=== PATIENT | female | born 1975 | race Caucasian/White ===

== ENCOUNTER 2017-08-17 08:50 | Outpatient (CLI) | payer BC, SELFPAY ==
[2017-08-17 09:40] VITALS: BP 153/78; PULSE 84; RESP 18; TEMP 36.8
[2017-08-17 09:55] VITALS: BP 151/75; PULSE 80; RESP 18
[2017-08-17 10:50] VITALS: BP 137/71; PULSE 70; RESP 18
--- NOTE | 2017-08-17 11:20 | PC.NURSE ---
TOTAL VOLUME INCLUDES FERAHEME AND NS.
--- NOTE | 2017-08-17 11:27 | PC.NURSE ---
FERAHEME INFUSION STARTED AT 0940.
== END 2017-08-17 10:55 | disposition home or self-care (01) ==
LOC: INF 11:06
PROVIDERS: Family Provider Internal Medicine Adolescent Medicine; Visit Provider Internal Medicine Endocrinology, Diabetes & Metabolism
DX: D50.9 Iron deficiency anemia, unspecified (principal)
CPT/HCPCS: Q0138

== ENCOUNTER 2017-08-24 08:30 | Outpatient (CLI) | payer BC, SELFPAY ==
[2017-08-24 09:05] VITALS: BP 132/71; PULSE 65; RESP 20; TEMP 36.9; O2SAT 98
[2017-08-24 10:08] VITALS: BMI 37.8
== END 2017-08-24 09:40 | disposition home or self-care (01) ==
PROVIDERS: Family Provider Internal Medicine Adolescent Medicine; Visit Provider Internal Medicine Endocrinology, Diabetes & Metabolism
DX: D50.9 Iron deficiency anemia, unspecified (principal)
CPT/HCPCS: 96365; Q0138

== ENCOUNTER → 2017-08-28 08:58 | Outpatient (CLI) | payer BC, SELFPAY ==
[2017-08-28 09:21] LABS: Basophils % 0.1 % (0.1-2.0); Eosinophils # 0.1 K/mm3 (0.0-0.4); Eosinophils % 2.4 % (0.1-12.0); Hematocrit 34.2 % (37.0-47.0); Lymphocytes # 1.5 K/mm3 (0.7-4.5); Lymphocytes % 34.3 K/mm3 (10-50); Mean Corpuscular HGB Conc 32.2 g/dL (31.8-35.4); Mean Corpuscular Hemoglobin 23.8 pg (27.0-31.2); Mean Corpuscular Volume 73.9 fl (81-99); Mean Platelet Volume 7.2 fl (7.4-10.4); Monocytes # 0.2 K/mm3 (0.1-1.0); Monocytes % 4.5 % (1.7-9.3); Neutrophils # 2.6 K/mm3 (1.8-7.8); Neutrophils % 58.6 % (37.0-80.0); Platelet Count 200 K/mm3 (142-424); Red Blood Count 4.63 M/mm3 (4.20-5.40); Red Cell Distribution Width 19.9 % (11.5-17.5); White Blood Count 4.4 K/mm3 (4.8-10.8)
[2017-08-28 12:52] LABS: Alanine Aminotransferase 41 U/L (12-78); Albumin Level 3.8 gm/dL (3.4-5.0); Albumin/Globulin Ratio 1.1 (1.1-1.8); Alkaline Phosphatase 277 U/L (46-116); Aspartate Amino Transferase 46 U/L (15-37); Bilirubin,Total 0.8 mg/dL (0.2-1.0); Blood Urea Nitrogen 12 mg/dL (7-18); Calcium 9.2 mg/dL (8.5-10.1); Carbon Dioxide 26 mmol/L (21.0-32.0); Chloride 103 mmol/L (98-107); Creatinine,Serum 0.37 mg/dL (0.55-1.02); Estimated Glomerular Filt Rate 192 ml/min (>60); Free T4 (Free Thyroxine) 1.93 ng/dl (0.76-1.46); GFR (African American) 232 ML/MIN (>60); Globulin 3.6 gm/dl (1.3-3.2); Glucose 97 mg/dL (74-106); Sodium 138 mmol/L (136-145); T4 (Thyroxine) 16.9 ug/dl (4.7-13.3); Thyroid Stimulating Hormone 0.01 uIU/ml (0.358-3.740); Total Protein,Serum 7.4 gm/dL (6.4-8.2)
[2017-08-28 13:20] LABS: Ferritin 985 ng/mL (8-388)
[2017-08-29 08:29] LABS: Iron 105 ug/dL (27-159); UIBC 286 ug/dL (131-425)
[2017-08-30 08:50] LABS: Iron Saturation 27 % (15-55); Triiodothyronine (T3) Free 9.3 pg/mL (2.0-4.4)
== END ==
PROVIDERS: PCP Internal Medicine Adolescent Medicine; Visit Provider Internal Medicine Endocrinology, Diabetes & Metabolism
DX: E05.20 Thyrotoxicosis with toxic multinodular goiter without thyrotoxic crisis or storm (principal); E04.2 Nontoxic multinodular goiter; R94.6 Abnormal results of thyroid function studies
CPT/HCPCS: 36415; 80053; 82728; 83550; 84436; 84439; 84443; 84481; 85025

== ENCOUNTER → 2017-10-13 09:59 | Outpatient (CLI) | payer BC, SELFPAY ==
[2017-10-13 10:15] LABS: Basophils % 0.3 % (0.1-2.0); Eosinophils # 0.1 K/mm3 (0.0-0.4); Eosinophils % 2.2 % (0.1-12.0); Hematocrit 36.4 % (37.0-47.0); Hemoglobin 12.2 g/dL (12.2-16.2); Lymphocytes # 1.9 K/mm3 (0.7-4.5); Mean Corpuscular HGB Conc 33.6 g/dL (31.8-35.4); Mean Corpuscular Hemoglobin 26.8 pg (27.0-31.2); Mean Corpuscular Volume 79.8 fl (81-99); Mean Platelet Volume 7.6 fl (7.4-10.4); Monocytes # 0.3 K/mm3 (0.1-1.0); Monocytes % 5.5 % (1.7-9.3); Neutrophils # 2.7 K/mm3 (1.8-7.8); Neutrophils % 54.1 % (37.0-80.0); Platelet Count 183 K/mm3 (142-424); Red Blood Count 4.56 M/mm3 (4.20-5.40); Red Cell Distribution Width 17.4 % (11.5-17.5)
[2017-10-13 13:02] LABS: Alanine Aminotransferase 47 U/L (12-78); Albumin Level 3.6 gm/dL (3.4-5.0); Albumin/Globulin Ratio 1.1 (1.1-1.8); Alkaline Phosphatase 249 U/L (46-116); Anion Gap 12.1 mEq/L (5-15); Aspartate Amino Transferase 39 U/L (15-37); Bilirubin,Total 0.7 mg/dL (0.2-1.0); Blood Urea Nitrogen 10 mg/dL (7-18); Calcium 8.7 mg/dL (8.5-10.1); Carbon Dioxide 26 mmol/L (21.0-32.0); Chloride 103 mmol/L (98-107); Creatinine,Serum 0.46 mg/dL (0.55-1.02); Estimated Glomerular Filt Rate 149 ml/min (>60); Free T4 (Free Thyroxine) 1.27 ng/dl (0.76-1.46); GFR (African American) 180 ML/MIN (>60); Globulin 3.4 gm/dl (1.3-3.2); Glucose 108 mg/dL (74-106); Potassium 4.1 mmoL/L (3.5-5.1); Sodium 137 mmol/L (136-145); T4 (Thyroxine) 11.8 ug/dl (4.7-13.3); Thyroid Stimulating Hormone 0.01 uIU/ml (0.358-3.740)
[2017-10-14 23:20] LABS: Triiodothyronine (T3) Free 4.5 pg/mL (2.0-4.4)
== END ==
PROVIDERS: PCP Internal Medicine Adolescent Medicine; Visit Provider Internal Medicine Endocrinology, Diabetes & Metabolism
DX: E05.20 Thyrotoxicosis with toxic multinodular goiter without thyrotoxic crisis or storm (principal); R94.6 Abnormal results of thyroid function studies
CPT/HCPCS: 36415; 80053; 84436; 84439; 84443; 84481; 85025

== ENCOUNTER 2017-10-15 01:39 | Emergency (ER) | payer OTHER, SELFPAY ==
[2017-10-15 01:41] VITALS: BP 166/72; PULSE 70; RESP 18; TEMP 36.7; O2SAT 98; BMI 37.8
--- NOTE | 2017-10-15 02:00 | CT_ITS ---
CT head/brain wo con Ordering Physician: Andres Mckeon MD Patient Age: 41 years: Female . HISTORY pain injury. Hit top of head on bottom of acoustical door at work at 845 work related injury blunt trauma headache but no LOC. Headache.. TECHNIQUE: Routine axial CT head without contrast. Bone and brain windows reviewed No comparisons available None available . FINDINGS No hemorrhage. No mass. No subdural no extra-axial collection. The ventricles and basal cisterns appear satisfactory. . The posterior fossa is unremarkable. Skull intact. No skull fracture nor lesion evident. Note is made of near 15 mm domelike area at the floor right sphenoid sinus most likely incidental mucous retention cyst. No expansion to suggest mucocele. The remainder the paranasal sinuses clear. Orbits unremarkable. Mastoid air cells middle air and IACs survey images unremarkable. IMPRESSION: No acute intracranial findings. Brain within normal limits.
--- NOTE | 2017-10-15 02:14 | CT_ITS ---
CT cervical spine wo con Ordering Physician: Andres Mckeon MD Patient Age: 41 years: Female HISTORY: ITS.REASON: injury to head Hit top of head at work. Injury. Headache. Neck pain. TECHNIQUE: Helical CT scanning performed the cervical spine with sagittal and coronal reconstructions on CT workstation. COMPARISON : FINDINGS The cervical spine intact with no fracture nor subluxation evident. Degenerative vertebral bodies are intact. The disc spaces are well-maintained throughout. Facets and posterior elements intact.... There may be some scant early degenerative facet changes but these are very minor point. Normal alignment C-spine. Prevertebral soft tissues appear normal. C1-C2 relationships appear normal. . Thyroid appears enlarged bilaterally with left lobe extending down towards notch... Measures over 5 cm length right and left lobe. Was clinical correlation. Consider thyroid ultrasound Scattered small/[moderate-sized nodes throughout the neck] base of skull intact. The flat dome white Retention cyst floor right sphenoid sinus noted. The artifact from dental fillings. IMPRESSION: - Cervical spine intact with no fracture nor subluxation. No acute findings Thyromegaly incidentally noted. Warrants correlation
[2017-10-15 02:22] LABS: Urine Pregnancy, HCG Qual. Negative (Negative)
[2017-10-15 03:19] VITALS: BP 140/74; PULSE 71; O2SAT 98
--- NOTE | 2017-10-15 03:29 | HMH.EDTRAUMA ---
ED Disposition Clinical Impression: Concussion without loss of consciousness Qualifiers: Encounter type: initial encounter Qualified Code(s): S06.0X0A - Concussion without loss of consciousness, initial encounter Disposition: Home, Self-Care Condition on Discharge: Good Instructions: DI for Concussion Additional Instructions: advil/tyenol and ice and see pcp as needed- workman comp forms completed Referrals: Vitaly Dean MD [Primary Care Provider] - - Critical Care Critical Care Time: No Attestation: On 10/15/17, the high probability of a clinically significant, sudden or life threatening deterioration of the following system(s) required my full and direct attention, intervention and personal management. The time I documented below is in addition to time spent performing reported procedures but includes the following listed in this critical care notation. Medical Decision Making - Medical Records Medical records reviewed: Yes: I reviewed the patient's medical records. Vital Signs: 10/15/17 01:41 10/15/17 03:19 Temperature 98.1 F Temperature Source Oral Pulse Rate [Left Brachial] 70 71 Respiratory Rate 18 Blood Pressure [Left Arm] 166/72 140/74 Blood Pressure Mean [Left Arm] 103 96 Blood Pressure Source [Left Arm] Automatic Cuff Blood Pressure Position [Left Arm] Sitting Sitting 02 Sat by Pulse Oximetry 98 98 Oxygen Delivery Method Room Air Room Air - Lab Data Lab Results 10/15/17 02:14: Urine HCG, Qual Negative Orders (Tests/Meds): ORDERS Category Date Time Status CT cervical spine wo con Stat Cat Scan 10/15/17 02:[address] head/brain wo con Stat Cat Scan 10/15/17 02:00 Taken - CT Data CT Scan: Head, C-Spine Time Received: 03:[address] Reviewed: Yes: I have viewed the radiologist's interpretation Preliminary Findings: No Fracture Seen - Maldonado Inquiry Pt receiving controlled substance: No Trauma Alert The Trauma Alert Section documentation for [id number] Adelfo Taveras was populated with data that defaulted in from the president mortgage company in the Trauma Alert Triage Assessment on _Reg Service Date] to provide within this report, the status of the patient on arrival to the ED during the Trauma Alert. - Arrival Mode of Arrival: Ambulatory ED Triage Condition: Stable Information Source: Patient, Medical Record Limitations: No Limitations Description of Symptoms (Recalled from ER Triage Doc. by RN): Hit her head on corner of the back wall freezer door. Dizziness at first. No neuro deficits. Reports pain. Date of Symptom Onset: 10/14/17 - Accident Information Trauma Date: 10/14/17 Trauma Time: [address]: Work - Pre-Hospital Care Pre-Hospital Care Given: No - Pre-Hospital Care History Oxygen in Use: No - Height/Weight/BMI Height: 5 ft 4 in Weight: 220 lb Weight Measurement Method: Stated by Patient Body Mass Index: 37.8 - Glascow Coma Scale Coma scale eye opening: Spontaneous Coma scale motor response: Obeys commands Coma scale verbal response: Oriented Coma scale total: 15 - Trauma Score Respiratory Effort- Trauma Score: Normal Systolic Blood Pressure - Trauma Score: 166 Capillary Refill: < 3 Seconds Trauma Score: 10 - Immunization Status Hx Immunizations Up to Date: Yes Hx Tetanus Toxoid Vaccination: Yes - C-Spine/Immobilization C-Spine Immobilization Present: No - Motor Vehicle Collision Was patient involved in Motor Vehicle Collision: No Trauma HPI - General Chief Complaint: Head Injury Stated Complaint: Hit head at work on refrigerator door Time Seen by Provider: 10/15/17 03:32 Mode of Arrival: Ambulatory Source of Information: Patient, Medical Record Limitations: No Limitations Description of Symptoms (Recalled from ER Triage Doc. by RN): Hit her head on corner of the back wall freezer door. Dizziness at first. No neuro deficits. Reports pain. - History of Present Illness HPI narrative: hit head on refri
--- NOTE | 2017-10-15 03:33 | ED_ITS ---
ED Disposition Clinical Impression: Concussion without loss of consciousness Qualifiers: Encounter type: initial encounter Qualified Code(s): S06.0X0A - Concussion without loss of consciousness, initial encounter Disposition: Home, Self-Care Condition on Discharge: Good Instructions: DI for Concussion Additional Instructions: advil/tyenol and ice and see pcp as needed- workman comp forms completed Referrals: Vitaly Dean MD [Primary Care Provider] - - Critical Care Critical Care Time: No Attestation: On 10/15/17, the high probability of a clinically significant, sudden or life threatening deterioration of the following system(s) required my full and direct attention, intervention and personal management. The time I documented below is in addition to time spent performing reported procedures but includes the following listed in this critical care notation. Medical Decision Making - Medical Records Medical records reviewed: Yes: I reviewed the patient's medical records. Vital Signs: 10/15/17 01:41 10/15/17 03:19 Temperature 98.1 F Temperature Source Oral Pulse Rate [Left Brachial] 70 71 Respiratory Rate 18 Blood Pressure [Left Arm] 166/72 140/74 Blood Pressure Mean [Left Arm] 103 96 Blood Pressure Source [Left Arm] Automatic Cuff Blood Pressure Position [Left Arm] Sitting Sitting 02 Sat by Pulse Oximetry 98 98 Oxygen Delivery Method Room Air Room Air - Lab Data Lab Results 10/15/17 02:14: Urine HCG, Qual Negative Orders (Tests/Meds): ORDERS Category Date Time Status CT cervical spine wo con Stat Cat Scan 10/15/17 02:[address] head/brain wo con Stat Cat Scan 10/15/17 02:00 Taken - CT Data CT Scan: Head, C-Spine Time Received: 03:[address] Reviewed: Yes: I have viewed the radiologist's interpretation Preliminary Findings: No Fracture Seen - Maldonado Inquiry Pt receiving controlled substance: No Trauma Alert The Trauma Alert Section documentation for [id number] Adelfo Taveras was populated with data that defaulted in from the assistant professor surgical technology in the Trauma Alert Triage Assessment on _Reg Service Date] to provide within this report, the status of the patient on arrival to the ED during the Trauma Alert. - Arrival Mode of Arrival: Ambulatory ED Triage Condition: Stable Information Source: Patient, Medical Record Limitations: No Limitations Description of Symptoms (Recalled from ER Triage Doc. by RN): Hit her head on corner of the back wall freezer door. Dizziness at first. No neuro deficits. Reports pain. Date of Symptom Onset: 10/14/17 - Accident Information Trauma Date: 10/14/17 Trauma Time: [address]: Work - Pre-Hospital Care Pre-Hospital Care Given: No - Pre-Hospital Care History Oxygen in Use: No - Height/Weight/BMI Height: 5 ft 4 in Weight: 220 lb Weight Measurement Method: Stated by Patient Body Mass Index: 37.8 - Glascow Coma Scale Coma scale eye opening: Spontaneous Coma scale motor response: Obeys commands Coma scale verbal response: Oriented Coma scale total: 15 - Trauma Score Respiratory Effort- Trauma Score: Normal Systolic Blood Pressure - Trauma Score: 166 Capillary Refill: < 3 Seconds Trauma Score: 10 - Immunization Status Hx Immunizations Up to Date: Yes Hx Tetanus Toxoid Vaccination: Yes - C-Spine/
[2017-10-15 03:37] VITALS: BMI 37.8
[2017-10-15 03:41] VITALS: BP 131/74; PULSE 78; RESP 18; TEMP 36.7; O2SAT 97
== END 2017-10-15 03:43 | disposition home or self-care (01) ==
PROVIDERS: Emergency Provider Emergency Medicine; Family Provider Internal Medicine Adolescent Medicine; PCP Internal Medicine Adolescent Medicine
DX: S06.0X0A Concussion without loss of consciousness, initial encounter (principal); W22.8XXA Striking against or struck by other objects, initial encounter; Y92.69 Other specified industrial and construction area as the place of occurrence of the external cause; Y99.0 Civilian activity done for income or pay
CPT/HCPCS: 70450; 72125; 81025; 99282

== ENCOUNTER → 2017-11-20 11:11 | Outpatient (POV) | payer BC, SELFPAY | PROVIDERS: Visit Provider Otolaryngology | DX: Z00.00 Encounter for general adult medical examination without abnormal findings (principal) ==

== ENCOUNTER → 2018-01-18 09:08 | Outpatient (CLI) | payer BC, SELFPAY ==
[2018-01-18 10:01] LABS: Calcium 6.8 mg/dL (8.5-10.1)
== END ==
PROVIDERS: Visit Provider Otolaryngology
DX: R01.1 Cardiac murmur, unspecified (principal); R00.1 Bradycardia, unspecified; I10 Essential (primary) hypertension; E05.90 Thyrotoxicosis, unspecified without thyrotoxic crisis or storm; R53.83 Other fatigue
CPT/HCPCS: 36415; 82310

== ENCOUNTER → 2018-02-25 17:51 | Outpatient (CLI) | payer BC, SELFPAY ==
[2018-02-25 21:34] LABS: Alanine Aminotransferase 40 U/L (12-78); Albumin Level 3.9 gm/dL (3.4-5.0); Albumin/Globulin Ratio 1.1 (1.1-1.8); Alkaline Phosphatase 202 U/L (46-116); Anion Gap 18.7 mEq/L (5-15); Aspartate Amino Transferase 43 U/L (15-37); Bilirubin,Total 0.5 mg/dL (0.2-1.0); Blood Urea Nitrogen 15 mg/dL (7-18); Calcium 8.2 mg/dL (8.5-10.1); Carbon Dioxide 22 mmol/L (21.0-32.0); Chloride 104 mmol/L (98-107); Creatinine,Serum 0.66 mg/dL (0.55-1.02); Estimated Glomerular Filt Rate 98 ml/min (>60); GFR (African American) 118 ML/MIN (>60); Globulin 3.5 gm/dl (1.3-3.2); Glucose 157 mg/dL (74-106); Potassium 3.7 mmoL/L (3.5-5.1); Sodium 141 mmol/L (136-145); Total Protein,Serum 7.4 gm/dL (6.4-8.2)
[2018-03-01 06:33] LABS: Parathyroid Hormone Intact 26 pg/mL (15-65)
== END ==
PROVIDERS: Visit Provider Internal Medicine Endocrinology, Diabetes & Metabolism
DX: E89.0 Postprocedural hypothyroidism (principal); E20.9 Hypoparathyroidism, unspecified; E83.52 Hypercalcemia
CPT/HCPCS: 36415; 80053; 83970

== ENCOUNTER → 2018-03-06 13:59 | Outpatient (CLI) | payer BC, SELFPAY ==
--- NOTE | 2018-03-06 14:01 | CA_ITS ---
PROCEDURE: 2-D M-mode and color Doppler study INDICATIONS FOR THE TEST: Chest pain COPD Heart Murmur+ Tobacco Smoking Palpitations Fatigue+ Syncope Edema Hypertension+Diabetes Mellitus+ Rheumatic Fever SOB KILPATRICK Obesity Hyperlipidemia Family History HD Additional History BRADYCARDIA PATIENT INFORMATION HEIGHT: 64 WEIGHT:248 GENDER: Female B/P:157/78 2-D/M-MODE INTERPRETATION: 2-D MEASUREMENTS OBSERVED VALUES IN CMS Right Ventricular Dimension (RVDd) 1.9 Interventricular Septum (Thickness)(IVsd) 1.2 Left Ventricular Internal Dimensions(LVIDd) 5.1 Left Ventricular Posterior Wall (Thickness)(LVPWd) 0.9 Aortic Root 2.5 Aortic Cusp Separation 1.8 Left Atrial Dimensions (LAD) 4.2 2D 1. Left atrium is mildly enlarged, left ventricle is normal size, mild qualitative concentric left ventricular hypertrophy, visually estimated ejection fraction of 55% with no obvious regional wall motion abnormality. 2. The right atrium and right ventricle are normal size and contractility. 3. The aortic, mitral and tricuspid valve are grossly normal. 4. The pulmonic valve is poorly visualized. 5. No significant pericardial effusion noted. DOPPLER INTERROGATION: Doppler interrogation of the aortic, mitral and tricuspid valve reveals presence of mild mitral and tricuspid regurgitation, tricuspid and jet velocity is insufficient for calculation of the right ventricular systolic pressure, grade 1 diastolic dysfunction seen without tissue Doppler evidence of raised left atrial pressure. CONCLUSION: 1. Mildly enlarged left atrium, normal left ventricular size, mild qualitative concentric left ventricular hypertrophy, visually estimated ejection fraction 55% with no obvious regional wall motion abnormality, grade 1 diastolic dysfunction seen without tissue Doppler evidence of raised left atrial pressure. 2. Mild mitral and tricuspid regurgitation 3. No significant pericardial effusion noted.
== END ==
PROVIDERS: Family Provider Internal Medicine Adolescent Medicine; PCP Internal Medicine Adolescent Medicine; Visit Provider Internal Medicine
DX: R01.1 Cardiac murmur, unspecified (principal)
CPT/HCPCS: 93306

== ENCOUNTER → 2018-03-12 07:40 | Outpatient (CLI) | payer BC, SELFPAY ==
--- NOTE | 2018-03-12 08:00 | US_ITS ---
US liver HISTORY: ITS.REASON: ELEVATED LIVER ENZYMES ORDERING PHYSICIAN: Alex Garcia PATIENT AGE: 42 years COMPARISON: None FINDINGS: PANCREAS:Unremarkable. No obvious mass or abnormal fluid collection. No ductal dilatation LIVER:No focal liver lesions demonstrated. Homogeneous echogenicity. No intrahepatic biliary ductal dilatation evident. There is appropriate direction of blood flow within the portal vein does not appear dilated. RIGHT KIDNEY:Unremarkable. Normal size and echogenicity. No hydronephrosis GALLBLADDER:No gallstones, gallbladder wall thickening, pericholecystic fluid, or biliary dilatation. Small amount of sludge/concentrated bile noted in the gallbladder. IMPRESSION: Small amount of sludge within the gallbladder otherwise negative right upper quadrant ultrasound Unremarkable. Liver
== END ==
PROVIDERS: Family Provider Internal Medicine Adolescent Medicine; PCP Internal Medicine Adolescent Medicine; Visit Provider Internal Medicine Endocrinology, Diabetes & Metabolism
DX: R74.8 Abnormal levels of other serum enzymes (principal)
CPT/HCPCS: 76705

== ENCOUNTER → 2018-03-19 07:41 | Outpatient (CLI) | payer BC, SELFPAY ==
[2018-03-19 08:52] LABS: Alanine Aminotransferase 37 U/L (12-78); Albumin Level 3.7 gm/dL (3.4-5.0); Alkaline Phosphatase 191 U/L (46-116); Anion Gap 13.4 mEq/L (5-15); Aspartate Amino Transferase 43 U/L (15-37); Bilirubin,Total 0.7 mg/dL (0.2-1.0); Blood Urea Nitrogen 19 mg/dL (7-18); Calcium 8.1 mg/dL (8.5-10.1); Carbon Dioxide 29 mmol/L (21.0-32.0); Chloride 100 mmol/L (98-107); Creatinine,Serum 1.03 mg/dL (0.55-1.02); Estimated Glomerular Filt Rate 58 ml/min (>60); Free T4 (Free Thyroxine) 0.75 ng/dl (0.76-1.46); GFR (African American) 71 ML/MIN (>60); Globulin 3.7 gm/dl (1.3-3.2); Glucose 179 mg/dL (74-106); Potassium 3.4 mmoL/L (3.5-5.1); Sodium 139 mmol/L (136-145); Thyroid Stimulating Hormone 9.23 uIU/ml (0.358-3.740); Total Protein,Serum 7.4 gm/dL (6.4-8.2)
[2018-03-20 15:04] LABS: Parathyroid Hormone Intact 25 pg/mL (15-65)
== END ==
PROVIDERS: Internal Medicine Endocrinology, Diabetes & Metabolism; Family Provider Internal Medicine Adolescent Medicine; PCP Internal Medicine Adolescent Medicine; Visit Provider Physician Assistant
DX: E89.0 Postprocedural hypothyroidism (principal); E20.9 Hypoparathyroidism, unspecified; E83.51 Hypocalcemia; E83.81 Hungry bone syndrome; R79.9 Abnormal finding of blood chemistry, unspecified
CPT/HCPCS: 36415; 80048; 80053; 83970; 84439; 84443

== ENCOUNTER → 2018-03-20 08:04 | Outpatient (CLI) | payer BC, SELFPAY ==
[2018-03-21 10:14] LABS: Alkaline Phosphatase 171 IU/L (39-117)
[2018-03-21 14:16] LABS: Bone Fraction: 29 % (14-68); Liver Fraction: 62 % (18-85)
[2018-03-22 09:09] LABS: Intestinal Frac.: 9 % (0-18)
== END ==
PROVIDERS: Visit Provider Internal Medicine Endocrinology, Diabetes & Metabolism
DX: E83.51 Hypocalcemia (principal); E83.81 Hungry bone syndrome; R79.9 Abnormal finding of blood chemistry, unspecified; E89.0 Postprocedural hypothyroidism
CPT/HCPCS: 36415; 84075; 84080

== ENCOUNTER → 2018-05-31 13:11 | Outpatient (CLI) | payer BC, SELFPAY ==
[2018-05-31 14:41] LABS: Basophils % 0.4 % (0.1-2.0); Eosinophils # 0.1 K/mm3 (0.0-0.4); Eosinophils % 1.9 % (0.1-12.0); Hemoglobin 11.5 g/dL (12.2-16.2); Lymphocytes # 2.3 K/mm3 (0.7-4.5); Mean Corpuscular HGB Conc 32.8 g/dL (31.8-35.4); Mean Corpuscular Hemoglobin 27.7 pg (27.0-31.2); Mean Corpuscular Volume 84.6 fl (81-99); Mean Platelet Volume 7.2 fl (7.4-10.4); Monocytes # 0.3 K/mm3 (0.1-1.0); Monocytes % 3.6 % (1.7-9.3); Neutrophils # 4.6 K/mm3 (1.8-7.8); Platelet Count 248 K/mm3 (142-424); Red Blood Count 4.13 M/mm3 (4.20-5.40); Red Cell Distribution Width 14.9 % (11.5-17.5); White Blood Count 7.3 K/mm3 (4.8-10.8)
[2018-05-31 15:25] LABS: Alanine Aminotransferase 41 U/L (12-78); Albumin Level 3.9 gm/dL (3.4-5.0); Albumin/Globulin Ratio 1.1 (1.1-1.8); Alkaline Phosphatase 191 U/L (46-116); Anion Gap 15.9 mEq/L (5-15); Aspartate Amino Transferase 56 U/L (15-37); Bilirubin,Total 0.8 mg/dL (0.2-1.0); Blood Urea Nitrogen 18 mg/dL (7-18); Calcium 8.3 mg/dL (8.5-10.1); Carbon Dioxide 27 mmol/L (21.0-32.0); Chloride 99 mmol/L (98-107); Creatinine,Serum 0.81 mg/dL (0.55-1.02); Estimated Glomerular Filt Rate 77 ml/min (>60); Ferritin 19 ng/mL (8-388); Free Thyroxine Index 2.4 ug/dL (5.93-13.13); GFR (African American) 93 ML/MIN (>60); Globulin 3.7 gm/dl (1.3-3.2); Glucose 113 mg/dL (74-106); Potassium 3.9 mmoL/L (3.5-5.1); Sodium 138 mmol/L (136-145); T4 (Thyroxine) 8.4 ug/dl (4.7-13.3); Thyroid Stimulating Hormone 12.78 uIU/ml (0.358-3.740); Total Protein,Serum 7.6 gm/dL (6.4-8.2); Triiodothryronine (T3) Uptake 28 % (31-39)
[2018-06-02 06:40] LABS: Iron 51 ug/dL (27-159); UIBC 414 ug/dL (131-425)
[2018-06-02 09:28] LABS: Iron Saturation 11 % (15-55)
[2018-06-04 06:29] LABS: Calcium, Ionized 4.6 mg/dL (4.5-5.6)
[2018-06-04 06:30] LABS: Vitamin B12 <150 pg/mL (232-1245)
[2018-06-04 13:11] LABS: Vitamin D 25 Hydroxy 22.5 ng/mL (30.0-100.0)
[2018-06-06 01:09] LABS: Methylmalonic Acid 736 nmol/L (0-378)
== END ==
PROVIDERS: PCP Internal Medicine Adolescent Medicine; Visit Provider Internal Medicine Adolescent Medicine
DX: E83.51 Hypocalcemia (principal); R25.3 Fasciculation; E61.1 Iron deficiency; M79.10 Myalgia, unspecified site
CPT/HCPCS: 36415; 80053; 82131; 82330; 82607; 82652; 82728; 83540; 83550; 83735; 84436; 84443; 84479; 85025

== ENCOUNTER → 2018-06-20 06:40 | Outpatient (CLI) | payer BC, SELFPAY ==
[2018-06-20 09:19] LABS: Alanine Aminotransferase 37 U/L (12-78); Albumin Level 3.5 gm/dL (3.4-5.0); Alkaline Phosphatase 157 U/L (46-116); Anion Gap 12.8 mEq/L (5-15); Aspartate Amino Transferase 48 U/L (15-37); Bilirubin,Total 0.7 mg/dL (0.2-1.0); Blood Urea Nitrogen 16 mg/dL (7-18); Calcium 7.7 mg/dL (8.5-10.1); Carbon Dioxide 30 mmol/L (21.0-32.0); Chloride 101 mmol/L (98-107); Estimated Glomerular Filt Rate 91 ml/min (>60); Free T4 (Free Thyroxine) 0.87 ng/dl (0.76-1.46); GFR (African American) 111 ML/MIN (>60); Globulin 3.4 gm/dl (1.3-3.2); Glucose 107 mg/dL (74-106); Potassium 3.8 mmoL/L (3.5-5.1); Sodium 140 mmol/L (136-145); Total Protein,Serum 6.9 gm/dL (6.4-8.2)
[2018-06-21 16:15] LABS: Parathyroid Hormone Intact 30 pg/mL (15-65); Vitamin D 25 Hydroxy 20.9 ng/mL (30.0-100.0)
== END ==
PROVIDERS: PCP Internal Medicine Adolescent Medicine; Visit Provider Internal Medicine Endocrinology, Diabetes & Metabolism
DX: E89.0 Postprocedural hypothyroidism (principal); E20.9 Hypoparathyroidism, unspecified; R94.6 Abnormal results of thyroid function studies
CPT/HCPCS: 36415; 80053; 82652; 83970; 84439; 84443

== ENCOUNTER → 2018-08-22 07:44 | Outpatient (CLI) | payer BC, SELFPAY ==
[2018-08-22 10:30] LABS: Alanine Aminotransferase 37 U/L (12-78); Albumin Level 3.6 gm/dL (3.4-5.0); Alkaline Phosphatase 178 U/L (46-116); Anion Gap 15.9 mEq/L (5-15); Aspartate Amino Transferase 52 U/L (15-37); Bilirubin,Total 0.6 mg/dL (0.2-1.0); Blood Urea Nitrogen 15 mg/dL (7-18); Calcium 7.6 mg/dL (8.5-10.1); Carbon Dioxide 27 mmol/L (21.0-32.0); Chloride 102 mmol/L (98-107); Creatinine,Serum 0.66 mg/dL (0.55-1.02); Estimated Glomerular Filt Rate 98 ml/min (>60); Free T4 (Free Thyroxine) 0.73 ng/dl (0.76-1.46); GFR (African American) 118 ML/MIN (>60); Globulin 3.6 gm/dl (1.3-3.2); Glucose 124 mg/dL (74-106); Phosphorous 4.4 mg/dL (2.4-4.9); Potassium 3.9 mmoL/L (3.5-5.1); Sodium 141 mmol/L (136-145); Thyroid Stimulating Hormone 14.37 uIU/ml (0.358-3.740); Total Protein,Serum 7.2 gm/dL (6.4-8.2)
[2018-08-23 17:18] LABS: Parathyroid Hormone Intact 31 pg/mL (15-65); Triiodothyronine (T3) Free 1.6 pg/mL (2.0-4.4)
[2018-08-23 17:20] LABS: Vitamin D 25 Hydroxy 30.6 ng/mL (30.0-100.0)
== END ==
PROVIDERS: Visit Provider Internal Medicine Endocrinology, Diabetes & Metabolism
DX: E03.8 Other specified hypothyroidism (principal); R94.6 Abnormal results of thyroid function studies; E20.9 Hypoparathyroidism, unspecified; E83.51 Hypocalcemia; E55.9 Vitamin D deficiency, unspecified; Z85.850 Personal history of malignant neoplasm of thyroid
CPT/HCPCS: 36415; 80053; 82652; 83735; 83970; 84100; 84439; 84443; 84481

== ENCOUNTER → 2018-09-14 12:02 | Outpatient (CLI) | payer BC, SELFPAY ==
[2018-09-14 12:47] LABS: Basophils % 0.4 % (0.1-2.0); Eosinophils # 0.1 K/mm3 (0.0-0.4); Eosinophils % 1.7 % (0.1-12.0); Hematocrit 31.6 % (37.0-47.0); Hemoglobin 10.1 g/dL (12.2-16.2); Lymphocytes # 1.6 K/mm3 (0.7-4.5); Lymphocytes % 30.3 % (10-50); Mean Corpuscular HGB Conc 31.8 g/dL (31.8-35.4); Mean Corpuscular Hemoglobin 25.1 pg (27.0-31.2); Mean Corpuscular Volume 78.8 fl (81-99); Mean Platelet Volume 7.1 fl (7.4-10.4); Monocytes # 0.2 K/mm3 (0.1-1.0); Neutrophils # 3.4 K/mm3 (1.8-7.8); Neutrophils % 63.5 % (37.0-80.0); Platelet Count 180 K/mm3 (142-424); Red Blood Count 4.01 M/mm3 (4.20-5.40); Red Cell Distribution Width 15.4 % (11.5-17.5); White Blood Count 5.3 K/mm3 (4.8-10.8)
[2018-09-14 16:07] LABS: Ferritin 11 ng/mL (8-388)
[2018-09-15 07:17] LABS: Iron 38 ug/dL (27-159); UIBC 430 ug/dL (131-425)
[2018-09-16 08:39] LABS: Iron Saturation 8 % (15-55); Vitamin B12 262 pg/mL (232-1245)
== END ==
PROVIDERS: Visit Provider Internal Medicine Adolescent Medicine
DX: E61.1 Iron deficiency (principal); E53.8 Deficiency of other specified B group vitamins
CPT/HCPCS: 36415; 82607; 82728; 83540; 83550; 85025

== ENCOUNTER → 2018-10-25 15:29 | Outpatient (CLI) | payer BC, SELFPAY | PROVIDERS: Visit Provider Internal Medicine Endocrinology, Diabetes & Metabolism | DX: E03.8 Other specified hypothyroidism (principal) | CPT/HCPCS: 80053; 84439; 84443 ==

== ENCOUNTER → 2018-10-25 15:29 | Outpatient (CLI) | payer BC, SELFPAY ==
[2018-10-25 16:33] LABS: Basophils % 0.5 % (0.1-2.0); Eosinophils # 0.1 K/mm3 (0.0-0.4); Eosinophils % 2.1 % (0.1-12.0); Hematocrit 31.6 % (37.0-47.0); Hemoglobin 9.9 g/dL (12.2-16.2); Lymphocytes # 1.6 K/mm3 (0.7-4.5); Lymphocytes % 25.9 % (10-50); Mean Corpuscular HGB Conc 31.3 g/dL (31.8-35.4); Mean Corpuscular Hemoglobin 24.9 pg (27.0-31.2); Mean Corpuscular Volume 79.5 fl (81-99); Mean Platelet Volume 6.9 fl (7.4-10.4); Monocytes # 0.3 K/mm3 (0.1-1.0); Monocytes % 4.1 % (1.7-9.3); Neutrophils # 4.1 K/mm3 (1.8-7.8); Neutrophils % 67.4 % (37.0-80.0); Platelet Count 208 K/mm3 (142-424); Red Blood Count 3.98 M/mm3 (4.20-5.40); Red Cell Distribution Width 16.3 % (11.5-17.5)
[2018-10-25 16:59] LABS: Ferritin 10 ng/mL (8-388)
[2018-10-26 21:39] LABS: Chloride 100 mmol/L (98-107); Potassium 3.6 mmoL/L (3.5-5.1); Sodium 138 mmol/L (136-145)
[2018-10-26 21:40] LABS: Blood Urea Nitrogen 13 mg/dL (7-18); Calcium 7.9 mg/dL (8.5-10.1); Carbon Dioxide 29 mmol/L (21.0-32.0); Creatinine,Serum 0.82 mg/dL (0.55-1.02); Estimated Glomerular Filt Rate 76 ml/min (>60); GFR (African American) 92 ML/MIN (>60); Glucose 115 mg/dL (74-106)
[2018-10-26 21:41] LABS: Alanine Aminotransferase 35 U/L (12-78); Albumin Level 3.8 gm/dL (3.4-5.0); Alkaline Phosphatase 178 U/L (46-116); Aspartate Amino Transferase 55 U/L (15-37); Bilirubin,Total 0.6 mg/dL (0.2-1.0); Globulin 3.9 gm/dl (1.3-3.2); Total Protein,Serum 7.7 gm/dL (6.4-8.2)
[2018-10-26 21:42] LABS: Thyroid Stimulating Hormone 18.32 uIU/ml (0.358-3.740)
[2018-10-26 22:28] LABS: Free T4 (Free Thyroxine) 0.63 ng/dl (0.76-1.46)
[2018-10-27 07:38] LABS: Iron 38 ug/dL (27-159); UIBC 438 ug/dL (131-425)
[2018-10-28 08:25] LABS: Iron Saturation 8 % (15-55)
== END ==
PROVIDERS: Internal Medicine Endocrinology, Diabetes & Metabolism; Visit Provider Internal Medicine Medical Oncology
DX: E03.8 Other specified hypothyroidism (principal); E20.9 Hypoparathyroidism, unspecified; E83.51 Hypocalcemia; D50.9 Iron deficiency anemia, unspecified
CPT/HCPCS: 36415; 80053; 82728; 83540; 83550; 84439; 84443; 84445; 85025

== ENCOUNTER 2018-10-30 13:29 | Outpatient (CLI) | payer BC, SELFPAY ==
[2018-10-30 14:28] VITALS: BP 137/82; PULSE 65; RESP 18; O2SAT 100
[2018-10-30 14:43] VITALS: BP 135/78; PULSE 64; RESP 18
== END 2018-10-30 14:50 | disposition home or self-care (01) ==
LOC: INF 13:29
PROVIDERS: Visit Provider Internal Medicine Medical Oncology
DX: D50.9 Iron deficiency anemia, unspecified (principal)
CPT/HCPCS: 96374; J1439

== ENCOUNTER 2018-11-11 08:17 | Outpatient (CLI) | payer BC, SELFPAY ==
[2018-11-11 08:45] VITALS: BP 138/86; PULSE 68; RESP 20; TEMP 36.9; O2SAT 95
[2018-11-11 09:24] VITALS: BP 128/78; PULSE 68; RESP 20; TEMP 36.9; O2SAT 95
== END 2018-11-11 09:30 | disposition home or self-care (01) ==
LOC: INF 08:17
PROVIDERS: Visit Provider Internal Medicine Medical Oncology
DX: D50.9 Iron deficiency anemia, unspecified (principal)
CPT/HCPCS: 96365; J1439

== ENCOUNTER → 2018-11-18 15:38 | Outpatient (CLI) | payer BC, SELFPAY ==
[2018-11-18 17:16] LABS: Calcium 7.5 mg/dL (8.5-10.1)
== END ==
PROVIDERS: Visit Provider Internal Medicine Endocrinology, Diabetes & Metabolism
DX: E83.51 Hypocalcemia (principal); E20.9 Hypoparathyroidism, unspecified; E89.0 Postprocedural hypothyroidism; R79.9 Abnormal finding of blood chemistry, unspecified
CPT/HCPCS: 36415; 82310

== ENCOUNTER → 2019-01-11 09:50 | Outpatient (CLI) | payer BC, SELFPAY ==
[2019-01-11 11:30] LABS: Calcium 8.5 mg/dL (8.5-10.1)
== END ==
PROVIDERS: Visit Provider Internal Medicine Endocrinology, Diabetes & Metabolism
DX: E83.51 Hypocalcemia (principal); E20.9 Hypoparathyroidism, unspecified; E89.0 Postprocedural hypothyroidism; R94.6 Abnormal results of thyroid function studies
CPT/HCPCS: 36415; 82310

== ENCOUNTER → 2019-01-20 07:39 | Outpatient (CLI) | payer BC, SELFPAY ==
[2019-01-20 11:15] LABS: Alanine Aminotransferase 39 U/L (12-78); Albumin Level 3.8 gm/dL (3.4-5.0); Albumin/Globulin Ratio 1.1 (1.1-1.8); Alkaline Phosphatase 193 U/L (46-116); Aspartate Amino Transferase 50 U/L (15-37); Bilirubin,Total 0.7 mg/dL (0.2-1.0); Blood Urea Nitrogen 16 mg/dL (7-18); Calcium 8.8 mg/dL (8.5-10.1); Carbon Dioxide 26 mmol/L (21.0-32.0); Chloride 103 mmol/L (98-107); Creatinine,Serum 0.62 mg/dL (0.55-1.02); Estimated Glomerular Filt Rate 105 ml/min (>60); GFR (African American) 127 ML/MIN (>60); Globulin 3.5 gm/dl (1.3-3.2); Glucose 142 mg/dL (74-106); Sodium 140 mmol/L (136-145); Total Protein,Serum 7.3 gm/dL (6.4-8.2)
[2019-01-22 06:27] LABS: Adrenocorticotropic Hormone 22.6 pg/mL (7.2-63.3); Vitamin D 25 Hydroxy 14.6 ng/mL (30.0-100.0)
[2019-01-23 18:54] LABS: Cortisol,F,ug/24hr,U 39 ug/24 hr (6-42); Cortisol,F,ug/L,U 39 ug/L (Undefined)
== END ==
PROVIDERS: Visit Provider Internal Medicine Endocrinology, Diabetes & Metabolism
DX: E03.8 Other specified hypothyroidism (principal); E34.9 Endocrine disorder, unspecified; R94.6 Abnormal results of thyroid function studies; E24.9 Cushing's syndrome, unspecified; E27.1 Primary adrenocortical insufficiency
CPT/HCPCS: 36415; 80053; 82024; 82530; 82533; 82652

== ENCOUNTER → 2019-01-27 15:11 | Outpatient (CLI) | payer BC, SELFPAY ==
[2019-01-27 17:35] LABS: Alanine Aminotransferase 41 U/L (12-78); Albumin/Globulin Ratio 1.1 (1.1-1.8); Alkaline Phosphatase 203 U/L (46-116); Anion Gap 15.6 mEq/L (5-15); Aspartate Amino Transferase 53 U/L (15-37); Bilirubin,Total 0.6 mg/dL (0.2-1.0); Blood Urea Nitrogen 11 mg/dL (7-18); Calcium 8.6 mg/dL (8.5-10.1); Carbon Dioxide 27 mmol/L (21.0-32.0); Chloride 101 mmol/L (98-107); Creatinine,Serum 0.77 mg/dL (0.55-1.02); Estimated Glomerular Filt Rate 81 ml/min (>60); GFR (African American) 99 ML/MIN (>60); Globulin 3.5 gm/dl (1.3-3.2); Glucose 92 mg/dL (74-106); Potassium 3.6 mmoL/L (3.5-5.1); Sodium 140 mmol/L (136-145); Thyroid Stimulating Hormone 12.24 uIU/ml (0.358-3.740); Total Protein,Serum 7.5 gm/dL (6.4-8.2)
[2019-01-29 17:45] LABS: Vitamin D 25 Hydroxy 11.7 ng/mL (30.0-100.0)
== END ==
PROVIDERS: PCP Internal Medicine Adolescent Medicine; Visit Provider Internal Medicine Endocrinology, Diabetes & Metabolism
DX: E20.9 Hypoparathyroidism, unspecified (principal); E89.0 Postprocedural hypothyroidism; E83.51 Hypocalcemia
CPT/HCPCS: 36415; 80053; 82652; 84439; 84443

== ENCOUNTER → 2019-01-29 15:00 | Outpatient (CLI) | payer BC, SELFPAY ==
[2019-01-29 17:10] LABS: Calcium 8.9 mg/dL (8.5-10.1)
== END ==
PROVIDERS: Visit Provider Internal Medicine Endocrinology, Diabetes & Metabolism
DX: E83.51 Hypocalcemia (principal); E20.9 Hypoparathyroidism, unspecified; E89.0 Postprocedural hypothyroidism; R94.6 Abnormal results of thyroid function studies
CPT/HCPCS: 36415; 82310

== ENCOUNTER → 2019-04-15 09:51 | Outpatient (CLI) | payer BC, SELFPAY | PROVIDERS: PCP Internal Medicine Adolescent Medicine; Visit Provider Podiatrist | DX: M79.673 Pain in unspecified foot (principal) ==

== ENCOUNTER → 2019-04-16 09:00 | Outpatient (CLI) | payer BC, SELFPAY ==
--- NOTE | 2019-04-16 09:03 | XR_ITS ---
PROCEDURE: XR FOOT WT BEARING LT 3V CLINICAL INDICATION: pain COMPARISON: FTL3 FOOT-LT-3 VIEWS from 06/01/2013 FINDINGS: No fracture or dislocation. No lytic or blastic change. There is normal mineralization. The joint spaces are well-preserved. No significant degenerative/arthritic changes. No erosive changes evident. Other findings:There is mild pes planus and there is mildly prominent calcaneal spur noted. IMPRESSION: Pes planus otherwise negative Dictated by: Jerry Falcon MD 04/16/2019 18:13 Electronically signed by Jerry Falcon MD in [place] 04/16/2019 18:13
--- NOTE | 2019-04-16 09:03 | XR_ITS ---
PROCEDURE: XR FOOT WT BEARING RT 3V CLINICAL INDICATION: pain COMPARISON: FTL3 FOOT-LT-3 VIEWS from 06/01/2013 FINDINGS: No fracture or dislocation. No lytic or blastic change. There is normal mineralization. The joint spaces are well-preserved. No significant degenerative/arthritic changes. No erosive changes evident. Other findings:Mild pes planus. Mildly prominent calcaneal spur. There also prominent posterior talar process IMPRESSION: Pes planus. Calcaneal spur, Mildly prominent posterior talar process Dictated by: Jerry Falcon MD 04/16/2019 18:20 Electronically signed by Jerry Falcon MD in [place] 04/16/2019 18:20
== END ==
PROVIDERS: PCP Internal Medicine Adolescent Medicine; Visit Provider Podiatrist
DX: M79.672 Pain in left foot (principal); M79.671 Pain in right foot
CPT/HCPCS: 73630

== ENCOUNTER → 2019-04-25 08:11 | Outpatient (CLI) | payer BC, SELFPAY ==
[2019-04-25 10:06] LABS: Alanine Aminotransferase 28 U/L (12-78); Albumin Level 3.6 gm/dL (3.4-5.0); Alkaline Phosphatase 199 U/L (46-116); Anion Gap 11.1 mEq/L (5-15); Aspartate Amino Transferase 52 U/L (15-37); Bilirubin,Total 0.7 mg/dL (0.2-1.0); Blood Urea Nitrogen 14 mg/dL (7-18); Calcium 7.9 mg/dL (8.5-10.1); Carbon Dioxide 30 mmol/L (21.0-32.0); Chloride 99 mmol/L (98-107); Creatinine,Serum 0.61 mg/dL (0.55-1.02); Estimated Glomerular Filt Rate 107 ml/min (>60); Free T4 (Free Thyroxine) 0.96 ng/dl (0.76-1.46); GFR (African American) 129 ML/MIN (>60); Globulin 3.6 gm/dl (1.3-3.2); Glucose 251 mg/dL (74-106); Potassium 4.1 mmoL/L (3.5-5.1); Sodium 136 mmol/L (136-145); T4 (Thyroxine) 10.3 ug/dl (4.7-13.3); Thyroid Stimulating Hormone 9.19 uIU/ml (0.358-3.740); Total Protein,Serum 7.2 gm/dL (6.4-8.2)
[2019-04-28 14:24] LABS: Vitamin D 25 Hydroxy 14.4 ng/mL (30.0-100.0)
== END ==
PROVIDERS: Visit Provider Internal Medicine Endocrinology, Diabetes & Metabolism
DX: E89.0 Postprocedural hypothyroidism (principal); E55.9 Vitamin D deficiency, unspecified; E20.9 Hypoparathyroidism, unspecified; R94.6 Abnormal results of thyroid function studies
CPT/HCPCS: 36415; 80053; 82652; 84436; 84439; 84443

== ENCOUNTER → 2019-05-16 10:57 | Outpatient (CLI) | payer BC, SELFPAY ==
[2019-05-16 14:26] LABS: Anion Gap 8.2 mEq/L (5-15); Blood Urea Nitrogen 14 mg/dL (7-18); Carbon Dioxide 28 mmol/L (21.0-32.0); Chloride 98 mmol/L (98-107); Potassium 4.1 mmoL/L (3.5-5.1); Sodium 134 mmol/L (136-145)
[2019-05-16 14:27] LABS: Creatinine,Serum 0.75 mg/dL (0.55-1.02); Estimated Glomerular Filt Rate 84 ml/min (>60); GFR (African American) 102 ML/MIN (>60)
[2019-05-16 14:28] LABS: Alanine Aminotransferase 29 U/L (12-78); Aspartate Amino Transferase 55 U/L (15-37); Bilirubin,Total 0.8 mg/dL (0.2-1.0); Calcium 8.2 mg/dL (8.5-10.1); Glucose 401 mg/dL (74-106)
[2019-05-16 14:29] LABS: Albumin Level 3.6 gm/dL (3.4-5.0); Albumin/Globulin Ratio 0.9 (1.1-1.8); Globulin 3.8 gm/dl (1.3-3.2); Total Protein,Serum 7.4 gm/dL (6.4-8.2)
[2019-05-16 14:30] LABS: Alkaline Phosphatase 194 U/L (46-116)
[2019-05-18 17:19] LABS: Calcium, Ionized 4.9 mg/dL (4.5-5.6)
== END ==
PROVIDERS: Visit Provider Internal Medicine Endocrinology, Diabetes & Metabolism
DX: E89.0 Postprocedural hypothyroidism (principal); E20.9 Hypoparathyroidism, unspecified; R94.6 Abnormal results of thyroid function studies
CPT/HCPCS: 36415; 80053; 82330

== ENCOUNTER → 2019-07-19 08:47 | Outpatient (CLI) | payer BC, SELFPAY ==
[2019-07-19 14:00] LABS: Alanine Aminotransferase 28 U/L (12-78); Albumin Level 3.3 gm/dL (3.4-5.0); Alkaline Phosphatase 163 U/L (46-116); Aspartate Amino Transferase 36 U/L (15-37); Bilirubin,Total 0.8 mg/dL (0.2-1.0); Blood Urea Nitrogen 12 mg/dL (7-18); Calcium 7.7 mg/dL (8.5-10.1); Carbon Dioxide 29 mmol/L (21.0-32.0); Chloride 102 mmol/L (98-107); Creatinine,Serum 0.65 mg/dL (0.55-1.02); Estimated Glomerular Filt Rate 99 ml/min (>60); Free T4 (Free Thyroxine) 1.17 ng/dl (0.76-1.46); GFR (African American) 120 ML/MIN (>60); Globulin 3.3 gm/dl (1.3-3.2); Glucose 185 mg/dL (74-106); Sodium 141 mmol/L (136-145); Total Protein,Serum 6.6 gm/dL (6.4-8.2)
[2019-07-21 11:24] LABS: Vitamin D 25 Hydroxy 36.6 ng/mL (30.0-100.0)
[2019-07-22 16:43] LABS: Calcium, Ionized 4.6 mg/dL (4.5-5.6)
== END ==
PROVIDERS: Visit Provider Internal Medicine Endocrinology, Diabetes & Metabolism
DX: E89.0 Postprocedural hypothyroidism (principal); E20.9 Hypoparathyroidism, unspecified; R94.6 Abnormal results of thyroid function studies
CPT/HCPCS: 36415; 80053; 82330; 82652; 84439; 84443

== ENCOUNTER → 2019-11-11 07:09 | Outpatient (CLI) | payer BC, SELFPAY ==
--- NOTE | 2019-11-11 | CA_ITS ---
APPROVED REPORT Exam: Exercise Treadmill Technologist: Mirta Torres Ht: 5 ft 4 in Wt: 272 lbs BSA: 2.23 m2 HR: 71 bpm BP: 133/81 mmHg Indications: Chest pain Medical History Medications: Levothyroxine,,,,, Metformin,,,,, Vitamin D3,,,,, Losartan,,,,, Glimepiride,,,,, Carvedilol,,,,, Calcium,,,,, CalciTRiol,,,,, Stress Test Details Test: Rony HR Resting HR: 84 bpm Max Heart Rate (APMHR): 175 bpm Max HR Achieved: 146 bpm Target HR (85% APMHR): 148 bpm % of APMHR: 83 Recovery HR: 90 bpm BP Resting BP: 133.0/81.0 mmHg Max BP: 175.0/86.0 mmHg Recovery BP: 140.0/80.0 mmHg ECG Clinical Exercise duration: 06:37 min Highest Stage Achieved: Exercise capacity: 7.0 METs Stress ECG Conclusion Resting ECG: Sinus rhythm Rony protocol completed. Exercised 6:37 at Stage II. Test stopped due to shortness of breath, leg fatigue. Symptoms: Shortness of breath, leg fatigue at peak exercise. Resolved in recovery. No chest pain. Arrhythmias/Ectopy: Occasional PVC. One ventricular couplet noted. ST-T Changes: Less than 1.[address] depression. Conclusion: Images to follow. Test Summary REST . . . . . . . Sitting REST 12:56 0.0 0.0 84 . 133/ 81 . . Stage 1 01:00 10.0 1.7 102 . . . . Stage 1 02:00 10.0 1.7 113 . . . . Stage 1 03:00 10.0 1.7 122 . 138/ 70 . . Stage 2 01:00 12.0 2.5 129 . . . . Stage 2 02:00 12.0 2.5 138 . . . . Stage 2 . . . . . . . Stage held Stage 2 03:00 12.0 2.5 144 . 145/ 82 . . Stage 2 . . . . . . . Stage resumed Stage 2 03:37 12.0 2.5 146 . 145/ 82 . Stop exercise at 06:37 RECOVERY 01:00 0.0 0.0 124 . 175/ 86 . . RECOVERY 02:00 0.0 0.0 100 . 175/ 86 . . RECOVERY 03:00 0.0 0.0 97 . 175/ 86 . . RECOVERY 04:00 0.0 0.0 89 . 175/ 86 . . RECOVERY 05:00 0.0 0.0 90 . 175/ 86 . . RECOVERY 05:24 0.0 0.0 89 . 140/ 80 . . Electronically signed by : Clayton Greenfield, 11/11/2019 17:37:20
--- NOTE | 2019-11-11 07:10 | NM_ITS ---
APPROVED REPORT Exam: Nuclear Stress Test Indication: Chest pain, HTN, DM, Former tobacco use, Family history Patient Location: Outpatient Stress Tech: Mirta Torres [place] Tech:Kitty Vu, ARRT, RT (R)(N) Ht: 5 ft 4 in Wt: 272 lbs Bra Size: 44DD HR: 71 bpm BP: 133/81 mmHg BSA: 2.23 m2 BMI: 46.6 History: Chest pain, HTN, DM, Former tobacco use, Family history Procedure: Patient exercised on Rony protocol 6:37 minutes and sec, resting heart rate 71 bpm, resting blood pressure 133/81 mmHg, with exercise maximum heart rate achived was 146 bpm which is Greater than 85 % of the maximum predicted heart rate and blood pressure was 175/86 mmHg. Test was stopped due to SOB and fatigue. Patient denied any complaint of chest pain. Patient has Adequate exercise capacity, achieved 7.0 METs of workload on treadmill, the blood pressure response to exercise was Adequate. Electrocardiogram Resting electrocardiogram showed sinus rhythm nonspecific ST-T changes, with exercise there is less than 1.[address] segment depression noted from the baseline EKG. The EKG portion of the exercise Myoview is negative for ischemia. Cardiac Stress and Resting SPECT Images: Cardiac Stress and Resting SPECT images were obtained using technetium 99m Myoview 32.1 mCi stress and 10.36 mCi at rest. Gated SPECT for analysis of segmental wall motion and calculation of the ejection fraction also done. Cardiac stress and resting SPECT images show mild fixed defect in the anterior wall with normal contractility to SPECT is likely secondary to soft tissue attenuation, no reversible ischemia seen. Computer derived ejection fraction is 64% with no regional wall motion abnormality, right ventricle is normal size and contractility. Conclusion: 1. The EKG portion of the exercise Myoview is negative for ischemia, patient has adequate exercise capacity achieved 7 mets of workload on treadmill, the blood pressure response to exercise was adequate, there was no exercise-induced chest discomfort. 2. No scintigraphic evidence of reversible ischemia seen, computer derived ejection fraction is 64% with no regional wall motion abnormality, right ventricle is normal size and contractility. 3. Likely normal exercise Myoview study. Electronically signed by : Clayton Greenfield, 11/11/2019 17:40:03
--- NOTE | 2019-11-11 08:15 | HMH.ITSHM ---
Current Home Medications as stated by this patient Adelfo Taveras or architectural representative. []VITMAIN D METFORMIN CALCITROL CARVEDILOL GLIMEPIRIDE LEVOTHYROXINE LOSARTAN TUMS
== END ==
PROVIDERS: PCP Internal Medicine Adolescent Medicine; Visit Provider Physician Assistant
DX: R07.9 Chest pain, unspecified (principal); I10 Essential (primary) hypertension; I50.33 Acute on chronic diastolic (congestive) heart failure
CPT/HCPCS: 78452; 93017; A9502

== ENCOUNTER → 2020-01-15 09:29 | Outpatient (CLI) | payer BC, SELFPAY ==
[2020-01-15 11:31] LABS: Alanine Aminotransferase 24 U/L (12-78); Albumin Level 4.6 g/dl (3.5-5.0); Albumin/Globulin Ratio 1.4 (1.1-1.8); Alkaline Phosphatase 204 U/L (38-126); Anion Gap 15.2 mEq/L (5-15); Aspartate Amino Transferase 57 U/L (14-36); Bilirubin,Total 0.9 mg/dl (0.2-1.3); Blood Urea Nitrogen 16 mg/dl (7-17); Calcium 9.4 mg/dl (8.4-10.2); Carbon Dioxide 29 mmol/L (22.0-30.0); Chloride 97 mmol/L (98-107); Estimated Glomerular Filt Rate 90 ml/min (>60); GFR (African American) 109 ML/MIN (>60); Globulin 3.3 g/dL (1.3-3.2); Glucose 151 mg/dl (74-100); Potassium 4.2 mmoL/L (3.5-5.1); Sodium 137 mmol/L (136-145); Total Protein,Serum 7.9 g/dl (6.3-8.2)
[2020-01-15 11:42] LABS: Intact Parathyroid Hormone 17.2 pg/mL (7.5-53.5)
[2020-01-15 11:47] LABS: 25-OH Vitamin D, Total 44.8 ng/mL (30-100); Free T4 (Free Thyroxine) 1.57 ng/dl (0.78-2.19)
[2020-01-16 11:18] LABS: Triiodothyronine (T3) Free 2.8 pg/mL (2.0-4.4)
== END ==
PROVIDERS: Visit Provider Internal Medicine Endocrinology, Diabetes & Metabolism
DX: E89.0 Postprocedural hypothyroidism (principal); E20.9 Hypoparathyroidism, unspecified; E55.9 Vitamin D deficiency, unspecified; E83.51 Hypocalcemia
CPT/HCPCS: 36415; 80053; 82306; 82330; 83970; 84439; 84443; 84481

== ENCOUNTER → 2020-01-20 13:33 | Outpatient (CLI) | payer BC, SELFPAY | PROVIDERS: Visit Provider Internal Medicine Endocrinology, Diabetes & Metabolism | DX: E89.0 Postprocedural hypothyroidism (principal); E83.51 Hypocalcemia; E20.9 Hypoparathyroidism, unspecified; E55.9 Vitamin D deficiency, unspecified | CPT/HCPCS: 82330 ==

== ENCOUNTER → 2020-04-08 07:29 | Outpatient (CLI) | payer BC, SELFPAY ==
--- NOTE | 2020-04-08 07:33 | MM_ITS ---
PROCEDURE: MM DIG SCREENING MAMM BI W/CAD Digital Breast Tomosynthesis Included CLINICAL INDICATION: SCREENING There is no personal or family history of breast cancer. COMPARISON: This is a baseline screening exam, patient without complaints TECHNIQUE: Standard CC and MLO images and 3D Tomosynthesis was obtained. R2 CAD reviewed. FINDINGS: Breasts are composed primarily of fat with minimal scattered fibroglandular densities seen throughout each breast. There is a benign-appearing calcification in each breast. There is no suspicious lesion and no suspicious microcalcifications. IMPRESSION: Fatty type breast parenchyma with no suspicious lesions seen BI-RAD Category: 2 Benign Finding(s) FOLLOW-UP: 1YR 1 Year Follow-up (A letter has been sent to the patient regarding results of the study.) Dictated by: Dr. Bucky Calabrese MD 04/09/2020 09:27 Dr. Bucky Calabrese MD in [place] 04/09/2020 09:27
[2020-04-08 08:57] LABS: Basophils % 0.4 % (0.1-2.0); Eosinophils # 0.1 K/mm3 (0.0-0.4); Eosinophils % 1.9 % (0.1-12.0); Hematocrit 36.1 % (37.0-47.0); Hemoglobin 12.2 g/dL (12.2-16.2); Lymphocytes # 1.8 K/mm3 (0.7-4.5); Mean Corpuscular HGB Conc 33.9 g/dL (31.8-35.4); Mean Corpuscular Hemoglobin 29.1 pg (27.0-31.2); Mean Corpuscular Volume 85.9 fl (81-99); Mean Platelet Volume 7.5 fl (7.4-10.4); Monocytes # 0.2 K/mm3 (0.1-1.0); Monocytes % 3.8 % (1.7-9.3); Neutrophils # 3.9 K/mm3 (1.8-7.8); Neutrophils % 64.9 % (37.0-80.0); Platelet Count 200 K/mm3 (142-424); Red Cell Distribution Width 15.2 % (11.5-17.5)
[2020-04-08 10:14] LABS: Alanine Aminotransferase 27 U/L (12-78); Albumin Level 4.1 g/dl (3.5-5.0); Albumin/Globulin Ratio 1.3 (1.1-1.8); Alkaline Phosphatase 229 U/L (38-126); Anion Gap 13.2 mEq/L (5-15); Aspartate Amino Transferase 51 U/L (14-36); Bilirubin,Total 0.7 mg/dl (0.2-1.3); Blood Urea Nitrogen 15 mg/dl (7-17); Calcium 9.3 mg/dl (8.4-10.2); Carbon Dioxide 29 mmol/L (22.0-30.0); Chloride 98 mmol/L (98-107); Chol/HDL Ratio 4.9 (1-3.5); Cholesterol 216 mg/dl (140-200); Estimated Glomerular Filt Rate 108 ml/min (>60); GFR (African American) 131 ML/MIN (>60); Globulin 3.2 g/dL (1.3-3.2); Glucose 183 mg/dl (74-100); HDL Cholesterol 44 mg/dl (40-60); Potassium 4.2 mmoL/L (3.5-5.1); Sodium 136 mmol/L (136-145); Total Protein,Serum 7.3 g/dl (6.3-8.2); Triglycerides 160 mg/dl (30-150); VLDL Cholesterol 32 mg/dL (0-40)
[2020-04-08 10:25] LABS: Direct LDL Cholesterol 129.22 mg/dL (100-129)
[2020-04-08 10:27] LABS: 25-OH Vitamin D, Total 36.4 ng/mL (30-100)
[2020-04-08 10:57] LABS: Hemoglobin A1C 7.7 % (4.0-6.0)
== END ==
PROVIDERS: PCP Internal Medicine Adolescent Medicine; Visit Provider Nurse Practitioner Family
DX: Z12.31 Encounter for screening mammogram for malignant neoplasm of breast (principal); E11.9 Type 2 diabetes mellitus without complications; E89.0 Postprocedural hypothyroidism; E61.1 Iron deficiency; E53.8 Deficiency of other specified B group vitamins; E55.9 Vitamin D deficiency, unspecified; Z68.42 Body mass index [BMI] 45.0-49.9, adult; Z79.84 Long term (current) use of oral hypoglycemic drugs
CPT/HCPCS: 36415; 77063; 77067; 80053; 80061; 82306; 83036; 85025

== ENCOUNTER 2020-08-15 08:56 | Emergency (ER) | payer BC, SELFPAY ==
[2020-08-15 09:09] VITALS: BP 115/62; PULSE 74; RESP 18; TEMP 37.1; O2SAT 96; BMI 44.9
[2020-08-15 09:15] VITALS: BP 115/62; PULSE 74; RESP 18; TEMP 37.1; O2SAT 96; BMI 44.7
[2020-08-15 09:30] VITALS: BP 102/49; BP 102/50; BP 104/54; PULSE 70; PULSE 72; PULSE 74
--- NOTE | 2020-08-15 09:30 | HMH.EDUTC ---
[facility] [place] Disposition Clinical Impression: Otitis media Qualifiers: Otitis media type: unspecified Laterality: bilateral Qualified Code(s): H66.93 - Otitis media, unspecified, bilateral Disposition: Home, Self-Care Condition on Discharge: Good Instructions: Combating Dizziness in Older Adults, Vertigo, Meclizine Additional Instructions: Take medication as prescribed FOllow up with Cardiology and Family Doctor as advised Go straight to ER if no improvement or any worsening of symptoms Make sure that you are drinking plenty of fluids Return if needed Prescriptions: Meclizine HCl [Antivert 12.5mg tablet] 12.5 mg PO BID PRN #6 tab PRN Reason: Dizziness Prescription Printed Azithromycin [Z-Aguilar 250mg Tab] 250 mg PO DIRECTED #6 tab Prescription Printed Referrals: Vitaly Dean MD [Primary Care Provider] - As needed Forms: Work/School Release Time of Disposition: 10:13 Medical Decision Making - Maldonado Inquiry Pt receiving controlled substance: No Maldonado was queried for this patient: No Vital Signs: 08/15/20 09:09 08/15/20 09:15 08/15/20 09:30 Temperature 98.7 F 98.7 F Temperature Source Oral Oral Pulse Rate Pulse Rate [Left Radial] 74 74 Pulse Rate [Orthostatic Lying Right Brachial] 72 Pulse Rate [Orthostatic Sitting Right Brachial] 70 Pulse Rate [Orthostatic Standing Right Brachial] 74 Respiratory Rate 18 18 Blood Pressure Blood Pressure [Orthostatic Lying Right Arm] 104/54 L Blood Pressure [Orthostatic Sitting Right Arm] 102/50 L Blood Pressure [Orthostatic Standing Right Arm] 102/49 L Blood Pressure [Right Arm] 115/62 115/62 Blood Pressure Mean [Right Arm] 79 79 Blood Pressure Source [Right Arm] Automatic Cuff Automatic Cuff Blood Pressure Position [Right Arm] Sitting Sitting 02 Sat by Pulse Oximetry 96 96 Oxygen Delivery Method Room Air Room Air 08/15/20 10:19 Temperature 98.7 F Temperature Source Pulse Rate 74 Pulse Rate [Left Radial] Pulse Rate [Orthostatic Lying Right Brachial] Pulse Rate [Orthostatic Sitting Right Brachial] Pulse Rate [Orthostatic Standing Right Brachial] Respiratory Rate 18 Blood Pressure 115/62 Blood Pressure [Orthostatic Lying Right Arm] Blood Pressure [Orthostatic Sitting Right Arm] Blood Pressure [Orthostatic Standing Right Arm] Blood Pressure [Right Arm] Blood Pressure Mean [Right Arm] Blood Pressure Source [Right Arm] Blood Pressure Position [Right Arm] 02 Sat by Pulse Oximetry Oxygen Delivery Method Medical Decision Narrative: Patient was laid on exam table and orthostatic BP taken, patient denies dizziness patient asked to stand from sitting and lying position and denies dizziness of feeling of weakness States that at this time she feels fine, Discussed with patient and recommended that she be transferred back to the ED for further work up and evaluation and patient declined transfer States that at this time she is feeling fine Discussed CXR and patient declined [facility] [place] HPI - General Stated complaint: cough, back pain in shoulders, dizzy legs heavy Time Seen by Provider: 08/15/20 09:31 Mode of Arrival: Ambulatory Source of Information: Patient Limitations: No Limitations Description of Symptoms (Recalled from Triage Doc. by RN): c/o left upper shoulder pain and when she gets up and stats moving she has moments of dizziness. She started her period yesterday an she has had a heavier blood flow than normal and she has a hx of low iron. States that whenshe is sitting she is fine it is more from a laying to standing position that she feels dizzy. - History of Present Illness Provider Complaint: Patient states that for several days she has had pain and pressure in her ears and feels like she has fluid in there moving making her dizzy at times when she moves quickly, States that she started her period yesterday and has heavy menstral cycles and currently taking iron for but this doesnt feel like she does when her iron is low. St
[2020-08-15 10:19] VITALS: BP 115/62; PULSE 74; RESP 18; TEMP 37.1; O2SAT 96
--- NOTE | 2020-08-15 21:18 | PC.NURSE ---
PT NOTIFIED OF POSITIVE COVID RESULT
== END 2020-08-15 10:20 | disposition home or self-care (01) ==
LOC: ER 09:09 → UTC 09:10
PROVIDERS: Emergency Provider Nurse Practitioner; PCP Internal Medicine Adolescent Medicine
DX: U07.1 COVID-19 (principal); H66.93 Otitis media, unspecified, bilateral; E11.9 Type 2 diabetes mellitus without complications; I10 Essential (primary) hypertension; Z87.891 Personal history of nicotine dependence; R00.2 Palpitations; E03.9 Hypothyroidism, unspecified; Z79.899 Other long term (current) drug therapy
CPT/HCPCS: 99202; G0463; U0003

== ENCOUNTER → 2020-11-05 07:47 | Outpatient (CLI) | payer BC, SELFPAY ==
[2020-11-05 08:50] LABS: Basophils % 0.3 % (0.1-2.0); Eosinophils # 0.1 K/mm3 (0.0-0.4); Eosinophils % 1.4 % (0.1-12.0); Hematocrit 35.8 % (37.0-47.0); Lymphocytes # 1.5 K/mm3 (0.7-4.5); Lymphocytes % 28.1 % (10-50); Mean Corpuscular HGB Conc 33.4 g/dL (31.8-35.4); Mean Corpuscular Hemoglobin 29.6 pg (27.0-31.2); Mean Corpuscular Volume 88.4 fl (81-99); Mean Platelet Volume 7.9 fl (7.4-10.4); Monocytes # 0.2 K/mm3 (0.1-1.0); Monocytes % 3.1 % (1.7-9.3); Neutrophils # 3.5 K/mm3 (1.8-7.8); Neutrophils % 67.1 % (37.0-80.0); Platelet Count 163 K/mm3 (142-424); Red Blood Count 4.05 M/mm3 (4.20-5.40); White Blood Count 5.2 K/mm3 (4.8-10.8)
[2020-11-05 09:25] LABS: Alanine Aminotransferase 39 U/L (12-78); Albumin Level 4.2 g/dl (3.5-5.0); Albumin/Globulin Ratio 1.4 (1.1-1.8); Alkaline Phosphatase 297 U/L (38-126); Anion Gap 13.2 mEq/L (5-15); Aspartate Amino Transferase 79 U/L (14-36); Blood Urea Nitrogen 16 mg/dl (7-17); Calcium 8.7 mg/dl (8.4-10.2); Carbon Dioxide 27 mmol/L (22.0-30.0); Chloride 101 mmol/L (98-107); Chol/HDL Ratio 3.1 (1-3.5); Cholesterol 157 mg/dl (140-200); Estimated Glomerular Filt Rate 108 ml/min (>60); GFR (African American) 131 ML/MIN (>60); Glucose 251 mg/dl (74-100); HDL Cholesterol 50 mg/dl (40-60); Potassium 4.2 mmoL/L (3.5-5.1); Sodium 137 mmol/L (136-145); Total Protein,Serum 7.2 g/dl (6.3-8.2); Triglycerides 130 mg/dl (30-150); VLDL Cholesterol 26 mg/dL (0-40)
[2020-11-05 09:36] LABS: Direct LDL Cholesterol 75.63 mg/dL (100-129)
[2020-11-05 09:57] LABS: Hemoglobin A1C 9.2 % (4.0-6.0)
[2020-11-05 10:17] LABS: Vitamin B12 < 159 pg/mL (239-931)
[2020-11-05 11:03] LABS: Ferritin 32.5 ng/ml (6.24-137)
[2020-11-06 19:15] LABS: Thyroid Peroxidase Antibodies 75 IU/mL (0-34)
== END ==
PROVIDERS: Visit Provider Internal Medicine Adolescent Medicine
DX: E11.69 Type 2 diabetes mellitus with other specified complication (principal); E03.9 Hypothyroidism, unspecified; E61.1 Iron deficiency; E53.8 Deficiency of other specified B group vitamins; Z79.84 Long term (current) use of oral hypoglycemic drugs
CPT/HCPCS: 36415; 80053; 80061; 82607; 82728; 83036; 85025; 86376

== ENCOUNTER → 2021-07-14 07:48 | Outpatient (CLI) | payer BC, SELFPAY ==
[2021-07-14 09:00] LABS: Basophils % 0.8 % (0.1-2.0); Eosinophils # 0.1 K/mm3 (0.0-0.4); Eosinophils % 2.2 % (0.1-12.0); Hematocrit 37.8 % (37.0-47.0); Hemoglobin 12.8 g/dL (12.2-16.2); Lymphocytes # 1.5 K/mm3 (0.7-4.5); Lymphocytes % 29.3 % (10-50); Mean Corpuscular HGB Conc 33.9 g/dL (31.8-35.4); Mean Corpuscular Hemoglobin 30.2 pg (27.0-31.2); Mean Platelet Volume 7.8 fl (7.4-10.4); Monocytes # 0.2 K/mm3 (0.1-1.0); Monocytes % 4.2 % (1.7-9.3); Neutrophils # 3.1 K/mm3 (1.8-7.8); Neutrophils % 63.4 % (37.0-80.0); Platelet Count 164 K/mm3 (142-424); Red Blood Count 4.24 M/mm3 (4.20-5.40); Red Cell Distribution Width 15.5 % (11.5-17.5)
[2021-07-14 09:41] LABS: Alanine Aminotransferase 46 U/L (12-78); Albumin Level 4.5 g/dl (3.5-5.0); Albumin/Globulin Ratio 1.6 (1.1-1.8); Alkaline Phosphatase 334 U/L (38-126); Anion Gap 11.2 mEq/L (5-15); Aspartate Amino Transferase 83 U/L (14-36); Bilirubin,Total 1.1 mg/dl (0.2-1.3); Blood Urea Nitrogen 13 mg/dl (7-17); Calcium 8.9 mg/dl (8.4-10.2); Carbon Dioxide 30 mmol/L (22.0-30.0); Chloride 99 mmol/L (98-107); Chol/HDL Ratio 3.3 (1-3.5); Cholesterol 176 mg/dl (140-200); Estimated Glomerular Filt Rate 133 ml/min (>60); GFR (African American) 161 ML/MIN (>60); Globulin 2.8 g/dL (1.3-3.2); Glucose 332 mg/dl (74-100); HDL Cholesterol 53 mg/dl (40-60); Potassium 4.2 mmoL/L (3.5-5.1); Sodium 136 mmol/L (136-145); Total Protein,Serum 7.3 g/dl (6.3-8.2); Triglycerides 173 mg/dl (30-150); VLDL Cholesterol 35 mg/dL (0-40)
[2021-07-14 09:51] LABS: Direct LDL Cholesterol 81.27 mg/dL (100-129)
[2021-07-14 09:58] LABS: 25-OH Vitamin D, Total 40.2 ng/mL (30-100)
[2021-07-14 10:31] LABS: Vitamin B12 < 159 pg/mL (239-931)
== END ==
PROVIDERS: Visit Provider Nurse Practitioner Family
DX: Z00.00 Encounter for general adult medical examination without abnormal findings (principal); I10 Essential (primary) hypertension; E11.69 Type 2 diabetes mellitus with other specified complication; E89.0 Postprocedural hypothyroidism; E53.8 Deficiency of other specified B group vitamins; E55.9 Vitamin D deficiency, unspecified; Z79.84 Long term (current) use of oral hypoglycemic drugs
CPT/HCPCS: 36415; 80053; 80061; 82306; 82607; 83036; 84443; 85025

== ENCOUNTER 2021-10-15 16:32 | Emergency (ER) | payer BC, SELFPAY ==
[2021-10-15 16:32] VITALS: BP 143/82; PULSE 84; RESP 16; TEMP 36.6; O2SAT 98; BMI 43.7
--- NOTE | 2021-10-15 16:56 | HMH.EDGENADL ---
ED Disposition Clinical Impression: Epistaxis Disposition: Home, Self-Care Condition on Discharge: Good Instructions: DI for Nosebleed Additional Instructions: Use Afrin spray, 1 spray in each nostril twice a day for 3 days. Additional instructions for NOSE BLEED: Avoid blowing your nose, bending forward at the waist, or straining. If nosebleed starts again, squeeze your nostrils together with thumb and forefinger for use nose clamp for 5 minutes. If unable to stop the bleeding, return to the emergency department. Call Dr. Bowles (ENT) to schedule an appointment to be seen within 2-3 days. Referrals: Vitaly Dean MD [Primary Care Provider] - - Critical Care Critical Care Time: No Attestation: On 10/15/21, the high probability of a clinically significant, sudden or life threatening deterioration of the following system(s) required my full and direct attention, intervention and personal management. The time I documented below is in addition to time spent performing reported procedures but includes the following listed in this critical care notation. Medical Decision Making - Maldonado Inquiry Pt receiving controlled substance: No Vital Signs: 10/15/21 16:32 Temperature 98 F Temperature Source Oral Pulse Rate [Radial] 84 Respiratory Rate 16 Blood Pressure [Right Arm] 143/82 H Blood Pressure Mean [Right Arm] 102 Blood Pressure Position [Right Arm] Sitting 02 Sat by Pulse Oximetry 98 Oxygen Delivery Method Room Air Orders (Tests/Meds): ED MEDICATIONS Generic Name Dose Route Start Last Admin Trade Name Freq PRN Reason Stop Dose Admin Silver Nitrate 1 each 10/15/21 17:06 Silver Nitrate Applicator TP 10/15/21 17:07 ONCE ONE Discontinued Medications Generic Name Dose Route Start Last Admin Trade Name Freq PRN Reason Stop Dose Admin Cocaine HCl 4 ml 10/15/21 17:07 Cocaine 4% Topical Soln 4ml Bottle TP 10/15/21 17:08 ONCE ONE Oxymetazoline HCl 2 ml 10/15/21 17:06 Oxymetazoline Nasal Almo 0.05% 15ml NS 10/15/21 17:07 ONCE ONE General Adult HPI - General Stated complaint: nose bleed Time Seen by Provider: 10/15/21 16:56 - History of Present Illness HPI narrative: 2 nosebleeds from left nares today. Mostly bleeding out the nostril but if she sniffs it will go down the back of her throat. She is not on any blood thinners except low-dose aspirin. No chronic history of nosebleeds. No trauma. - Related Data Home Medications Medication Instructions Recorded Confirmed calcitriol 0.5 mcg capsule 0.5 mcg PO #60 cap 05/27/19 10/24/19 cholecalciferol (vitamin D3) 125 5,000 unit PO DAILY 05/27/19 10/24/19 mcg (5,000 unit) capsule metformin 500 mg tablet 500 mg PO BID tab 07/21/19 10/24/19 calcium carbonate 400 mg calcium 400 mg PO DAILY PRN 10/24/19 10/24/19 (1,000 mg) chewable tablet glimepiride 2 mg tablet 2 mg PO DAILY tab 10/24/19 10/24/19 levothyroxine 112 mcg tablet 112 mcg PO BID #60 tab 10/24/19 10/24/19 Previous Rx's Medication Instructions Recorded losartan 100 See Rx Instructions .ROUTE 05/11/20 mg-hydrochlorothiazide 12.5 mg .COMPLEX #90 tab tablet carvedilol 3.125 mg tablet 3.125 mg PO BID #60 tab 06/22/20 Azithromycin [Z-Aguilar 250mg Tab] 250 mg PO DIRECTED #6 tab 08/15/20 Meclizine HCl [Antivert 12.5mg 12.5 mg PO BID PRN #6 tab 08/15/20 tablet] Allergies Allergy/AdvReac Type Severity Reaction Status Date / Time No Known Allergies Allergy Verified 10/24/19 09:24 [facility] History - Hepatitis A Screen Attestation statement:: This patient has been screened for Hepatitis A risk factors. I have reviewed the patient's past medical history: Yes Medical History: Reports:: Diabetes Mellitus Type 2, Hypertension, Palpitations Denies:: Cancer, Diabetes Mellitus Type 1, MRSA Other Medical History: Reports: Hypothyroidism Other Surgeries: Yes: Thyroidectomy, Other Amputation: No Fractures: No Comment
--- NOTE | 2021-10-15 17:33 | PC.NURSE ---
pt is sitting up in bed. nothing needed at this time.
[2021-10-15 17:55] VITALS: BP 143/73; PULSE 78; RESP 16; TEMP 36.6; O2SAT 98
== END 2021-10-15 17:56 | disposition home or self-care (01) ==
PROVIDERS: Emergency Provider Emergency Medicine; PCP Internal Medicine Adolescent Medicine
DX: R04.0 Epistaxis (principal); R00.2 Palpitations; I10 Essential (primary) hypertension; E89.0 Postprocedural hypothyroidism; E11.9 Type 2 diabetes mellitus without complications; Z79.84 Long term (current) use of oral hypoglycemic drugs; Z79.899 Other long term (current) drug therapy; Z87.891 Personal history of nicotine dependence
CPT/HCPCS: 17250; 99283

== ENCOUNTER 2022-06-09 18:27 | Emergency (ER) | payer BC, SELFPAY ==
--- NOTE | 2022-06-09 19:06 | EXP.UTC ---
Discharge Plan Disposition Patient Disposition: Home, Self-Care Condition: Good Prescriptions Prescriptions: New prednisone [prednisone] 20 mg tablet 20 mg PO BID 5 Days Qty: 10 0RF [id number]-unlzcepws-IY [Bromfed DM] 2-30-10 mg/5 mL Syrup 5 ml PO Q4H PRN (Reason: Cough) Qty: 120 0RF amoxicillin-pot clavulanate 875-125 mg Tablet 1 tab PO Q12H Qty: 20 0RF No Action calcitriol 0.5 mcg capsule 0.5 mcg PO Qty: 60 cholecalciferol (vitamin D3) 5,000 unit capsule 5,000 unit PO DAILY calcium carbonate [Tums Ultra] 400 mg calcium (1,000 mg) tablet,chewable 400 mg PO DAILY PRN levothyroxine 112 mcg tablet 112 mcg PO BID Qty: 60 metformin 500 mg tablet 500 mg PO BID glimepiride 2 mg tablet 2 mg PO DAILY losartan-hydrochlorothiazide 100-12.5 mg tablet See Rx Instructions .ROUTE .COMPLEX Qty: 90 0RF Dose Instruction: TAKE ONE TABLET BY MOUTH EVERY DAY Rx Instructions: TAKE ONE TABLET BY MOUTH EVERY DAY carvedilol [Coreg] 3.125 mg tablet 3.125 mg PO BID Qty: 60 3RF Rx Instructions: must administer with a meal/food azithromycin 250 MG tablet 250 mg PO DIRECTED Qty: 6 0RF Rx Instructions: Take two (2) tablets on day #1, then one (1) tablet day #2 thru #5 meclizine 12.5 MG tablet 12.5 mg PO BID PRN (Reason: Dizziness) Qty: 6 0RF Referrals Follow up/Referrals: Vitaly Dean MD [Primary Care Provider] - See instructions Activity Restrictions/Add. Instructions Additional Instructions/Restrictions: Take all meds as prescribed. Rest, fluids. Follow up with Dr Dean if not improving. Clinical Impressions Clinical Impression: Bilateral otitis media Instructions Patient Instructions: DI for Otitis Media (Middle Ear Infection)-Child Discharge ED Provider: Lara Davis [facility] HPI General Stated complaint: sore throat, congestion, cough Time Seen by Provider: 06/09/22 19:06 History of Present Illness Provider Complaint: Ear pain, cough, congestion, sore throat X 4-5 days. Losing voice. No fever. Cough productive of green sputum. No vomiting or diarrhea. Onset (ago): day(s) (4-5) Relieving factors: none Exacerbating factors: none Associated symptoms: cough and headaches Treatments prior to arrival: none Related Data Home Medications Medication Instructions Recorded Confirmed calcitriol 0.5 mcg capsule 0.5 mcg PO #60 caps 05/27/19 10/24/19 cholecalciferol (vitamin D3) 125 5,000 unit PO DAILY 05/27/19 10/24/19 mcg (5,000 unit) capsule metformin 500 mg tablet 500 mg PO BID 07/21/19 10/24/19 calcium carbonate 400 mg calcium 400 mg PO DAILY PRN 10/24/19 10/24/19 (1,000 mg) chewable tablet (Tums Ultra) glimepiride 2 mg tablet 2 mg PO DAILY 10/24/19 10/24/19 levothyroxine 112 mcg tablet 112 mcg PO BID #60 tabs 10/24/19 10/24/19 Previous Rx's Medication Instructions Recorded losartan 100 See Rx Instructions .Route 05/11/20 mg-hydrochlorothiazide 12.5 mg .COMPLEX #90 tabs tablet carvedilol 3.125 mg tablet (Coreg) 3.125 mg PO BID #60 tabs 06/22/20 azithromycin 250 mg tablet 250 mg PO DIRECTED #6 tabs 08/15/20 meclizine 12.5 mg tablet 12.5 mg PO BID PRN Dizziness #6 08/15/20 tabs amoxicillin 875 mg-potassium 1 tab PO Q12H #20 tabs 06/09/22 clavulanate 125 mg tablet bykzabewbzsxsfn-rhtuixezwcdscit-AT 5 ml PO Q4H PRN Cough #120 mL 06/09/22 2 mg-30 mg-10 mg/5 mL oral syrup (Bromfed DM) prednisone 20 mg tablet 20 mg PO BID 5 days #10 tabs 06/09/22 Allergies Allergy/AdvReac Type Severity Reaction Status Date / Time No Known Allergies Allergy Verified 06/09/22 19:24 [facility] Medical History (Updated 06/09/22 @ 19:26 by JASWINDER Samson) HTN (hypertension) Palpitations Social History Smoking Status: Former smoker alcohol intake: never substance use type: denies use current occupational status: other Travel in the last 8 weeks: None
[2022-06-09 19:17] LABS: UTC Strep Screen (Rapid) Negative (Negative)
[2022-06-09 19:22] VITALS: BP 161/79; PULSE 71; RESP 18; TEMP 37.1; O2SAT 95; BMI 44.6
[2022-06-09 19:33] VITALS: BP 161/79; PULSE 71; RESP 18; TEMP 37.1
== END 2022-06-09 19:34 | disposition home or self-care (01) ==
PROVIDERS: Emergency Provider Physician Assistant; PCP Internal Medicine Adolescent Medicine
DX: H66.93 Otitis media, unspecified, bilateral (principal)
CPT/HCPCS: 87880; 99212; G0463

== ENCOUNTER → 2023-01-12 08:06 | Outpatient (CLI) | payer BC, SELFPAY ==
[2023-01-12 09:47] LABS: Alanine Aminotransferase 38 U/L (12-78); Albumin Level 4.6 g/dl (3.5-5.0); Albumin/Globulin Ratio 1.5 (1.1-1.8); Alkaline Phosphatase 318 U/L (38-126); Anion Gap 15.7 mEq/L (5-15); Aspartate Amino Transferase 59 U/L (14-36); Bilirubin,Total 1.3 mg/dl (0.2-1.3); Blood Urea Nitrogen 15 mg/dl (7-17); Carbon Dioxide 30 mmol/L (22.0-30.0); Chloride 93 mmol/L (98-107); Chol/HDL Ratio 3.3 (1-3.5); Cholesterol 189 mg/dl (140-200); Estimated Glomerular Filt Rate 107 ml/min (>60); GFR (African American) 129 ML/MIN (>60); Glucose 312 mg/dl (74-100); HDL Cholesterol 57 mg/dl (40-60); Potassium 3.7 mmoL/L (3.5-5.1); Sodium 135 mmol/L (136-145); Total Protein,Serum 7.6 g/dl (6.3-8.2); Triglycerides 198 mg/dl (30-150); VLDL Cholesterol 40 mg/dL (0-40)
[2023-01-12 09:58] LABS: Direct LDL Cholesterol 80.95 mg/dL (100-129)
[2023-01-12 10:08] LABS: Hemoglobin A1C 10.1 % (4.0-6.0)
== END ==
PROVIDERS: PCP Nurse Practitioner Family; Visit Provider Nurse Practitioner Family
DX: Z00.00 Encounter for general adult medical examination without abnormal findings (principal); E03.9 Hypothyroidism, unspecified; E11.69 Type 2 diabetes mellitus with other specified complication; Z79.84 Long term (current) use of oral hypoglycemic drugs
CPT/HCPCS: 36415; 80053; 80061; 83036; 84443

== ENCOUNTER → 2023-01-17 08:17 | Outpatient (CLI) | payer BC, SELFPAY ==
--- NOTE | 2023-01-17 08:29 | MM_ITS ---
PROCEDURE INFORMATION: Exam: MG Bilateral Screening 3D Mammography Exam date and time: 01/17/2023 8:26 AM Age: 47 years old Clinical indication: Screening mammogram TECHNIQUE: Imaging protocol: Bilateral Screening tomosynthesis and 2D mammography including computer-aided detection (CAD) when performed. COMPARISON: MG MM DIG SCREENING MAMM BI W/CAD 04/08/2020 8:03 AM FINDINGS: MAMMOGRAPHY: Breast composition: The breasts are almost entirely fatty. Mass: None. Architectural distortion: No new or suspicious architectural distortion. Calcifications: No new or suspicious calcifications are present Asymmetric density: No new or suspicious asymmetric density is present Skin thickening: None. Axillary adenopathy: None. IMPRESSION: No mammographic evidence of malignancy. Recommend annual screening mammography unless otherwise clinically indicated. ASSESSMENT: BI-RADS category 1: Negative
== END ==
PROVIDERS: PCP Nurse Practitioner Family; Visit Provider Nurse Practitioner Family
DX: Z12.31 Encounter for screening mammogram for malignant neoplasm of breast (principal)
CPT/HCPCS: 77063; 77067

== ENCOUNTER 2023-02-09 11:27 | Day surgery (SDC) | payer BC, SELFPAY ==
[2023-02-07 13:54] VITALS: BMI 43.7
--- NOTE | 2023-02-09 11:44 | P.PN_ITS ---
[facility] Disclaimer: The information contained in this section may have been updated after the patient was seen, as this information can be updated by other users. Medical History Allergies Anemia Arthritis Heart murmur Hemorrhoid History of COVID-19 History of gastroesophageal reflux (GERD) HTN (hypertension) Hypothyroid Migraine Palpitations Sinus headache Surgical History H/O thyroidectomy [place] teeth removed Family History Other Diabetes Family history of thyroid disease Heart disease Social History Smoking Status: Former smoker second hand exposure: No alcohol intake: never substance use type: denies use current occupational status: employed Travel in the last 8 weeks: None caffeine: No [facility] Anesthesia Checklist Patient Identification Patient Identification: Arm Band and Verbal (Name & ) Structural Data Admitted From: Home Planned Operative Procedure/s: Colonoscopy Consent for Planned Operative Procedure(s) Verified: Yes NPO Status Verified Time NPO: 00:00 Chart Verification Results Verified: HCG Airway Assessment C-Spine Mobility Assessed: Yes TMJ Mobility Assessed: Yes Dentition: Good Dentition Neurological Assessment Level of Consciousness: Awake Hx Seizures: No Numbness or tingling in extremities: No Anesthesia Plan Anesthesia Risk discussed: Yes Anesthesia Plan: Verified ASA Class: III Anesthesia Type: MAC
[2023-02-09 11:47] VITALS: BP 151/76; PULSE 68; RESP 18; TEMP 36.2; O2SAT 95
[2023-02-09 11:50] LABS: Urine Pregnancy, HCG Qual. Negative (Negative)
[2023-02-09 11:58] VITALS: O2SAT 95
--- NOTE | 2023-02-09 12:27 | HMH.SCOPE ---
Procedure: Date: 02/09/23 Patient Date of :: 1975 Procedure Performed:: Total colonoscopy to terminal ileum with polypectomy using hot snare Indications:: Patient is 47-year-old female. I had previously performed colonoscopy on her in 2013 at which time she had been having diarrhea. She did have a polypoid lesion removed. Pathology unknown at this time. She was scheduled for screening colonoscopy. Performing Provider:: Kem Adkins MD Referring Provider:: Jo-Ann Vo Sedation:: MAC sedation Procedure:: Patient history was obtained and appropriate physical examination was performed. Patient's medications and allergies were reviewed. Informed consent was obtained after explaining the benefits, alternatives, and risks of the procedure including, but not limited to, bleeding, perforation, missed lesions, and adverse reaction to anesthesia medications. Patient was transported to endoscopy procedure room. Patient was connected to monitoring devices. Throughout the procedure the patient's blood pressure, pulse, and oxygen saturations were monitored continuously. Patient identification and planned procedure were verified by the staff. Patient was positioned in lateral decubitus position. Digital anorectal exam was performed. Variable stiffness Olympus colonoscope was inserted and advanced under direct visualization to the cecum. Adequacy of the colonic preparation was noted. The colonoscope was advanced a short distance into the terminal ileum. The colonoscope was then slowly withdrawn while carefully examining the color, texture, anatomy, and integrity of the mucosoa circumferentially. Within the rectum retroflexion was performed. Colonoscope was then withdrawn. . . There was some retained stool mostly in the right colon. Much of this was able to be evacuated with high-volume irrigation and suctioning. There was a small stool ball which could not be evacuated. Near the hepatic flexure there was what appeared to be a sessile polypoid lesion removed in its entirety with hot snare. Remainder of the colon was unremarkable. Findings:: Polyp or lesion at hepatic flexure removed with hot snare Recommendations:: Follow-up colonoscopy pending pathology, likely 5 years Complications:: None immediate Estimated blood obtained (mL): 1 Colonoscopy Component Colonoscopy Component Was a colonoscopy performed during today's procedure?: Yes Recommended follow up colonoscopy of at least 10 years?: No If no, follow up colonoscopy recommended in ___ years?: 5 Reason for not recommending >/= 10 yr follow-up interval?: Polyps were removed and the current pathology is pending at the time of this dictation and follow-up colonoscopy timeframe will be pending pathology.
[2023-02-09 12:32] VITALS: BP 100/54; PULSE 67; RESP 16; TEMP 36.1; O2SAT 94
[2023-02-09 12:42] VITALS: BP 112/69; PULSE 65; RESP 16; O2SAT 96
[2023-02-09 12:52] VITALS: BP 118/75; PULSE 65; RESP 18; O2SAT 95
[2023-02-09 13:02] VITALS: BP 128/79; PULSE 64; RESP 18; TEMP 37.1; O2SAT 97
[2023-02-10 10:49] LABS: POC Glucose,Bedside 115 (70-110)
== END 2023-02-09 13:02 | disposition home or self-care (01) ==
PROVIDERS: PCP Nurse Practitioner Family; Visit Provider Surgery
PROC: 0DJD8ZZ Inspection of Lower Intestinal Tract, Via Natural or Artificial Opening Endoscopic (ICD-10-PCS; CPT 45385; principal; 2023-02-09 12:30)
DX: Z12.11 Encounter for screening for malignant neoplasm of colon (principal); Z86.010 Personal history of colon polyps; D12.3 Benign neoplasm of transverse colon; Z83.3 Family history of diabetes mellitus
CPT/HCPCS: 45385; 81025; 82962; J2704

== ENCOUNTER → 2023-02-13 09:37 | Outpatient (CLI) | payer BC, SELFPAY ==
--- NOTE | 2023-02-13 09:41 | US_ITS ---
FINAL REPORT CLINICAL HISTORY: ABN LABS COMPARISON: None FINDINGS: Sonographic images of the right upper quadrant were obtained. The pancreas is partially obscured. There is increased echogenicity of the liver compatible with fatty infiltration. The gallbladder appears normal without evidence of gallstones.There is no evidence of biliary ductal dilatation.The common duct measures 3mm. Limited images of the right kidney are unremarkable. IMPRESSION: Fatty infiltration of the liver. Otherwise unremarkable ultrasound of the right upper quadrant. Reviewed, Interpreted and Dictated by Kem Curry III, MD Transcribed by Linda Alex Authenticated and [facility]
== END ==
LOC: RAD 09:37
PROVIDERS: PCP Nurse Practitioner Family; Visit Provider Nurse Practitioner Family
DX: R89.9 Unspecified abnormal finding in specimens from other organs, systems and tissues (principal)
CPT/HCPCS: 76705

== ENCOUNTER 2023-11-23 08:42 | Outpatient (CLI) | payer BC, SELFPAY ==
[2023-11-23 09:33] LABS: Chloride 102 mmol/L (98-107); Potassium 3.7 mmoL/L (3.5-5.1); Sodium 137 mmol/L (136-145)
[2023-11-23 09:35] LABS: Blood Urea Nitrogen 16 mg/dl (7-17); Estimated Glomerular Filt Rate 106 ml/min (>60); GFR (African American) 129 ML/MIN (>60)
[2023-11-23 09:36] LABS: Alanine Aminotransferase 33 U/L (12-78); Albumin/Globulin Ratio 1.4 (1.1-1.8); Alkaline Phosphatase 248 U/L (38-126); Anion Gap 10.7 mEq/L (5-15); Aspartate Amino Transferase 42 U/L (14-36); Bilirubin,Total 1.1 mg/dl (0.2-1.3); Calcium 9.1 mg/dl (8.4-10.2); Carbon Dioxide 28 mmol/L (22.0-30.0); Cholesterol 149 mg/dl (140-200); Globulin 2.8 g/dL (1.3-3.2); Glucose 174 mg/dl (74-100); Total Protein,Serum 6.8 g/dl (6.3-8.2); Triglycerides 153 mg/dl (30-150); VLDL Cholesterol 31 mg/dL (0-40)
[2023-11-23 09:37] LABS: Chol/HDL Ratio 2.7 (1-3.5); HDL Cholesterol 55 mg/dl (40-60)
[2023-11-23 09:48] LABS: Direct LDL Cholesterol 69.27 mg/dL (100-129)
[2023-11-23 10:07] LABS: Thyroid Stimulating Hormone 7.43 uIU/mL (0.465-4.68)
== END 2023-11-23 23:59 | disposition home or self-care (01) ==
PROVIDERS: PCP Nurse Practitioner Family; Visit Provider Nurse Practitioner Family
DX: E11.69 Type 2 diabetes mellitus with other specified complication (principal); E78.2 Mixed hyperlipidemia; E03.9 Hypothyroidism, unspecified; Z79.84 Long term (current) use of oral hypoglycemic drugs
CPT/HCPCS: 36415; 80053; 80061; 83036; 84443